=== PATIENT | male | born 1945 | race Hispanic/Latino ===

== ENCOUNTER → 2023-11-28 08:36 | Outpatient (REF) | payer OTHER, SELFPAY ==
[2023-11-28 10:33] LABS: Erythrocyte Sed Rate 10 mm/hour (0-20)
== END ==
LOC: REG 08:36
PROVIDERS: ATTENDING PHYSICIAN Hospitalist; FAMILY PHYSICIAN Family Medicine; REFERRING PHYSICIAN Physician Assistant
DX: M35.3 Polymyalgia rheumatica (principal)
CPT/HCPCS: 36415; 85652; 86140

== ENCOUNTER → 2024-02-10 12:07 | Outpatient (REF) | payer OTHER, SELFPAY | LOC: RAD 12:07 | PROVIDERS: ATTENDING PHYSICIAN Physician Assistant | DX: M06.9 Rheumatoid arthritis, unspecified (principal); M79.641 Pain in right hand; M79.642 Pain in left hand; M25.531 Pain in right wrist; M25.532 Pain in left wrist; M79.601 Pain in right arm; M79.602 Pain in left arm | CPT/HCPCS: 73030; 73090; 73110; 73130 ==

== ENCOUNTER → 2024-03-12 09:35 | Outpatient (REF) | payer OTHER, SELFPAY | LOC: RAD 09:35 | PROVIDERS: ATTENDING PHYSICIAN Surgery Vascular Surgery; FAMILY PHYSICIAN Family Medicine | DX: I72.4 Aneurysm of artery of lower extremity (principal) | CPT/HCPCS: 93922; 93925 ==

== ENCOUNTER → 2024-03-18 10:49 | Outpatient (REF) | payer OTHER, SELFPAY ==
[2024-03-18 12:47] LABS: Blood Urea Nitrogen 20 mg/dl (9-20); Calcium 9.9 mg/dl (8.4-10.2); Carbon Dioxide 29 mmol/L (22-30); Chloride 105 mmol/L (98-107); Glucose 101 mg/dl (70-99); Potassium 4.4 mmol/L (3.5-5.1); Sodium 143 mmol/L (135-145); eGFR > 60.00
== END ==
LOC: REG 10:49
PROVIDERS: ATTENDING PHYSICIAN Surgery Vascular Surgery
DX: I72.4 Aneurysm of artery of lower extremity (principal)
CPT/HCPCS: 36415; 80048

== ENCOUNTER → 2024-03-24 10:42 | Outpatient (REF) | payer OTHER, SELFPAY | LOC: HWRAD 10:42 | PROVIDERS: ATTENDING PHYSICIAN Surgery Vascular Surgery; FAMILY PHYSICIAN Family Medicine | DX: I72.4 Aneurysm of artery of lower extremity (principal) | CPT/HCPCS: 74174; Q9967 ==

== ENCOUNTER 2024-05-04 09:12 | Inpatient (IN) | payer OTHER, SELFPAY ==
[2024-04-29 10:30] VITALS: BMI 24.6
[2024-04-29 11:14] LABS: % Basophils 0.4 % (0-2); % Eosinophils 0.8 % (0-6); % Immature Granulocytes 0.7 % (0-0.5); % Lymphocytes 11.6 % (20.5-51.1); % Monocytes 9.3 % (1.7-9.3); % Neutrophils 77.2 % (42.2-75.2); Absolute Eosinophils 0.1 10^3/uL (0-0.7); Absolute Immature Granulocytes 0.1 10^3/uL (0-0.05); Absolute Lymphocytes 1.3 10^3/uL (1.2-3.4); Absolute Neutrophils 8.5 10^3/uL (1.4-6.5); Hematocrit 39.8 % (39.0-52.0); Hemoglobin 13.4 g/dL (13.0-18.0); Mean Corp Hgb Conc. 33.7 g/dL (33.0-37.0); Mean Corpuscular Hgb 31.8 pg (27.0-31.0); Mean Corpuscular Volume 94.5 fL (80.0-94.0); Mean Platelet Volume 9.3 fL (7.4-10.4); Nucleated Red Blood Cells % 0 % (-); Platelet Count 205 10^3/uL (130-400); Red Blood Cell Count 4.21 10^6/uL (4.70-6.10); Red Cell Dist. Width 14.6 % (11.5-14.5)
[2024-04-29 11:33] LABS: INR 1.02; PT 13.4 Sec (11.4-14.6)
[2024-04-29 11:34] LABS: APTT 32.1 Sec (23.4-35.0)
[2024-04-29 11:56] LABS: Blood Urea Nitrogen 21 mg/dl (9-20); Calcium 9.4 mg/dl (8.4-10.2); Carbon Dioxide 27 mmol/L (22-30); Chloride 103 mmol/L (98-107); Estimated Creatinine Clearance 44 ml/min; Glucose 98 mg/dl (70-99); Potassium 4.2 mmol/L (3.5-5.1); Sodium 139 mmol/L (135-145); eGFR > 60.00
--- NOTE | 2024-04-30 08:35 | PTCARENOTE ---
Patients 04/29 CXR abnormal- Palam @ Dr. Robles office notified.
[2024-05-04] VITALS (8 sets, daily range): BP systolic 105–136; BP diastolic 64–77; BMI 24.5
--- NOTE | 2024-05-04 09:26 | W.SUR.PREOP ---
Pre-Operative Surgical Note
-
I have examined this patient prior to the performance of the scheduled procedure.
The patient's condition is unchanged from the time of the current History and
Physical and the patient is able to undergo the scheduled procedure.
[2024-05-04] MEDS: PERIDEX 0.12% ORAL RINSE 15 ML PO (09:55)
[2024-05-04] MEDS: BACTROBAN NASAL 1 GRAM NASAL (09:55)
[2024-05-04] MEDS: NSS 500 IV (09:56)
[2024-05-04] MEDS: VANCOCIN 200 IV (09:56)
--- NOTE | 2024-05-04 10:36 | PTCARENOTE ---
Family reports increased restlessness, pt medicated with dilaudid as charted for comfort.
--- NOTE | 2024-05-04 11:52 | W.IMMPOSTOP ---
Surgical Immed Post Op Note
-
Primary Surgeon: Inder Jay III, MD
Assisting Surgeon: Colin Lee MD
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
Post-op Diagnosis: As above
Procedure Performed: Left common femoral artery aneurysm repair
Anesthesia Type: General
Specimen / Cultures: NA
Estimated Blood Loss: 100cc
Complications: None
Operative Findings:
A vertical incision was made and a femoral cutdown was performed in the standard fashion. Lymphactics were tied off or suture ligated. Proximal and distal control of the femoral vessel was obtained. Systemic heparinization was administered. Control
of branch vessels stemming from the aneurysmal section was also obtained. The aneurysmal section was resected and branch vessels transected. A 8mm wide dacron interposition graft was measured, shaped, and sewn in an end-end fashion to the two ends
of the non-aneurysmal femoral artery remnants using running 5-0 polypropylene suture. The branch vessels were re-anastamosed to an arteriotomy made in the graft and sewn in an end-side fashion. Doppler ultrasonography confirmed widely patent flow in
the femoral artery as well as all re-anastamosed branch vessels. Hemostasis was confirmed. A sartorius muscle flap was harvested and used to cover the interposition graft via attachment to surrounding fascia using a running 2-0 vicryl suture. Two OLAYINKA
drains were left in place. The overlying soft tissue and skin were closed with a running 3-0 prolene and 4-0 monocryl suture. After skin closure, doppler sonography was used to reconfirm patent blood flow to the distal extremities.
--- NOTE | 2024-05-04 12:46 | PTCARENOTE ---
Pt now weaned to room air, medicated as charted. Assisted Jennifer, hospice nurse to reposition pt and meet with children at bedside.
[2024-05-04 13:51] LABS: ACT-LR - POC 321 Seconds (116-155)
[2024-05-04 14:51] LABS: ACT-LR - POC 208 Seconds (116-155)
[2024-05-04 15:22] LABS: ACT-LR - POC 170 Seconds (116-155)
[2024-05-04 16:30] LABS: Hemoglobin 11.3 g/dL (13.0-18.0); Mean Corp Hgb Conc. 34.2 g/dL (33.0-37.0); Mean Corpuscular Hgb 31.7 pg (27.0-31.0); Mean Corpuscular Volume 92.7 fL (80.0-94.0); Mean Platelet Volume 9.1 fL (7.4-10.4); Platelet Count 196 10^3/uL (130-400); Red Blood Cell Count 3.56 10^6/uL (4.70-6.10); Red Cell Dist. Width 14.2 % (11.5-14.5); White Blood Cell Count 7.8 10^3/uL (4.8-10.8)
--- NOTE | 2024-05-04 16:35 | CON.INTV ---
Consultation
Consultation Request
Date/Time Consultation Requested: 05/04/2024 - 153
Date/Time Consultation Performed: 05/04/2024 - 160
Requesting Provider: RIGO Evans
Performing Provider: Evelio Chin MD
Reason for Consultation: s/p femoral anuerysm repair and muscle flap
Medical History
-
Chief Complaint: Elective femoral artery aneurysm repair
History of Present Illness:
78-year-old former tobacco smoking male with past medical history of hyperlipidemia, hypertension, AAA s/p repair (2018) and history of RA who presents with left common femoral artery aneurysm repair. Patient follows with vascular surgery,
Pierre, with last office visit on 04/07/2024. At that visit his CT angio showing a left common femoral artery aneurysm with significant mural thrombus was reviewed. Surgical repair was discussed and patient has agreed to this. Today, patient
underwent left common femoral artery aneurysm repair with prophylactic sartorius muscle flap coverage. There were no complications to surgery with EBL 100 cc. Patient transferred to the ICU postoperatively and critical care services consulted for
additional management/recommendations.
When I saw the patient he was in bed, in no acute distress, breathing comfortably on 2 L/min nasal cannula saturating 98%. BP 114/74 via NIBP, and 144/79 via right radial A-line. Heart rate 86. He has some pain in his left hip/groin region but
otherwise denies chest pain, shortness of breath, headache, abdominal pain, fevers or chills.
PMHx: Hyperlipidemia, hypertension, dementia, right ear deafness, history of RA, PVD, former smoker
PSHx: AAA repair (2019 � [facility]), left and right groin stents placement (2020), right above-knee popliteal artery to below-knee popliteal artery bypass
Past Medical History
Past Medical History: Other (Above as per HPI)
Past Surgical History: Other (Above as per HPI)
Social History
Tobacco: Former Smoker (Quit in 2017)
Alcohol: None
Drug: None
Personal:
Living: With Family
Family History
Family History: Reviewed & Not Pertinent
Allergies / Home Medications
Allergies
Allergy/AdvReac Type Severity Reaction Status Date / Time
adhesive Allergy Blistering/ Verified 05/04/24 15:39
welts
Penicillins Allergy 1951-childh Verified 05/04/24 15:39
ood
Home Medications
�Medication �Instructions �Recorded �Confirmed �Last Taken �Type
aspirin 81 mg tablet,delayed 81 mg PO QPM Blood clot 11/14/21 05/04/24 05/03/24 18:00 History
release prevention/tx
atorvastatin 40 mg tablet 40 mg PO QPM High cholesterol 11/14/21 05/04/24 05/03/24 18:00 History
cholecalciferol (vitamin D3) 25 1,000 units PO QPM Supplement 11/14/21 05/04/24 05/03/24 18:00 History
mcg (1,000 unit) tablet
clopidogrel 75 mg tablet 75 mg PO QPM Blood clot 11/14/21 05/04/24 05/03/24 18:00 History
prevention/tx
lisinopril 10 mg tablet 10 mg PO QPM Blood pressure 11/14/21 05/04/24 05/03/24 18:00 History
denosumab 60 mg/mL subcutaneous 60 mg SC [id number] 09/24/23 05/04/24 10 Days Ago History
syringe (Prolia) ~09/14/23
cyanocobalamin (vitamin B-12) 1,000 mcg PO HS 04/26/24 05/04/24 05/03/24 18:00 History
1,000 mcg tablet
prednisone 5 mg tablet 5 mg PO HS 04/26/24 05/04/24 05/03/24 18:00 History
Review of Systems
-
History Source: Patient
All other systems: Negative unless noted
Vitals / Labs / Diagnostic Testing
Vital Signs
Temp Pulse Resp BP Pulse Ox
96.7 F L 83 14 136/71 97
05/04/24 17:10 05/04/24 17:00 05/04/24 17:00 05/04/24 17:36 05/04/24 17:10
Lab Data
05/04/24 16:23
05/04/24 16:23
Laboratory Results
05/04/24
16:23
PT 14.6
INR 1.16
APTT 32.7
Diagnostic Testing:
Physical Exam
-
HEENT: Normocephalic and Anicteric
Cardiovascular: S1/S2 and Peripheral Edema (Negative)
Respiratory: Wheeze (Negative), Rales (Negative), Rhonchi (Negative) and Other (Reduced breath sounds bilaterally)
GI: Soft, Non Distended, Non Tender and Normal Bowel Sounds
Neurology: Awake, Alert and Tremors (Negative)
Skin: Warm and Dry
General: Respiratory Distress (Negative), Comfortable and Chills (Negative)
Assessment
-
Assessment: 78-year-old former tobacco smoking male with past medical history of hyperlipidemia, hypertension, AAA s/p repair (2019) and history of RA who presents with left common femoral artery aneurysm repair. Patient follows with vascular
surgery, Dr. Jay, with last office visit on 04/07/2024. At that visit his CT angio showing a left common femoral artery aneurysm with significant mural thrombus was reviewed. Surgical repair was discussed and patient has agreed to this. Today,
patient underwent left common femoral artery aneurysm repair with prophylactic sartorius muscle flap coverage. There were no complications to surgery with EBL 100 cc. Patient transferred to the ICU postoperatively and critical care services
consulted for additional management/recommendations.
Chronic conditions MAITRE D: Hyperlipidemia, hypertension, dementia, right ear deafness, history of RA, PVD, former smoker
Impression:
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
#Anemia
#Former tobacco use
#Hypertension
#History of AAA s/p repair (2019)
#Hyperlipidemia
Plan:
Postoperative surgical intensive care unit monitoring
Pain control
Up OOB as tolerated
Supplemental oxygen to maintain SpO2 >90-94% -wean as tolerated
Incentive spirometry encouraged
prn nebulized bronchodilators - not currently bronchospastic
Aspiration precautions
Neuro and vascular checks per protocol
Maintain MAP>65
Replete electrolytes with K>4, Mg>2
Vascular surgery following-correspondence and operative notes reviewed
Maintain euglycemia with goal BG 140-180
DVT prophylaxis
Early nutrition
Early mobilization
Critical care statement: A total of 38 minutes of critical care time was provided for this patient today. This includes management of unstable vital signs, evaluation of the patient at bedside, reviewing the patient's pertinent medical records
including radiographs, microbiology, laboratory evaluations, and discussion with primary team, consultants, pharmacy, nutrition, physical therapy, case management, charge nurse, critical care nursing, and respiratory therapy.
[2024-05-04 16:41] LABS: INR 1.16; PT 14.6 Sec (11.4-14.6)
[2024-05-04 16:42] LABS: APTT 32.7 Sec (23.4-35.0)
[2024-05-04 16:48] LABS: Blood Urea Nitrogen 17 mg/dl (9-20); Calcium 7.8 mg/dl (8.4-10.2); Carbon Dioxide 21 mmol/L (22-30); Chloride 108 mmol/L (98-107); Estimated Creatinine Clearance 73 ml/min; Glucose 149 mg/dl (70-99); Potassium 4.5 mmol/L (3.5-5.1); Sodium 136 mmol/L (135-145); eGFR > 60.00
[2024-05-04] MEDS: NSS 1000 IV (16:54)
--- NOTE | 2024-05-04 17:21 | OR.RPT ---
Operative Report
Operative Report
Date of Operation: 05/04/2024
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
Procedure:
1.) Left common femoral artery aneurysm repair
2.) Prophylactic sartorius muscle flap coverage
Surgeon: Inder Jay III, MD
Assistants: Colin Lee MD PGY-2; Flo Mills MD PGY-1
Anesthesia: General
Complications: None
Estimated Blood Loss: 100 cc
History and Indications for Procedure: 78-year-old male with large left common femoral artery aneurysm and associated mural thrombus
Procedure in Detail: Lyndon Vang was correctly identified and placed supine on the operating table. After adequate induction of anesthesia his abdomen, pelvis, left groin and left thigh were prepped and draped in the usual sterile fashion. He
received preoperative antibiotics. A timeout procedure was performed with the nursing and anesthesia staff confirming the patient's identity as well as the nature and laterality of the procedure.
A vertical incision was made over the left groin. Electrocautery and sharp dissection were carried down to the inguinal ligament. Dissection continued under the inguinal ligament and the distal left external iliac artery was exposed. Proximal
control was obtained on the distal external iliac artery with a vessel loop. Dissection was carried distally using a combination of electrocautery and sharp dissection. The common femoral artery aneurysm was exposed. The femoral bifurcation was
identified. The proximal superficial femoral artery was exposed and distal control was obtained on the SFA with a vessel loop. The profunda femoral artery was sharply exposed and dissection carried distally to the first branch points. Distal
control was obtained with vessel loops.
The patient was systemically heparinized. The distal vessel loops were secured. A Derra clamp was placed on the distal left external iliac artery. The aneurysm was opened with electrocautery and scissors. The aneurysm was opened to the distal
external iliac artery and a suitable site for the proximal anastomosis was identified. The artery was transected at this level. Mural thrombus was evacuated from the aneurysm sac. The aneurysm wall was sharply debrided back and this tissue, along
with mural thrombus, was sent to pathology. Distal dissection continued to the proximal superficial femoral artery. A suitable site for the distal anastomosis to the superficial femoral artery was identified. The artery was sharply transected at
this location. The proximal aspect of the profunda femoral artery was not aneurysmal and was transected to allow for direct reimplantation onto the graft.
I then brought onto the field and 8 mm Dacron limb. The proximal anastomosis was sewn end-to-end to the distal left external iliac artery using a running 5-0 Prolene suture. Following this the proximal clamp was released. There was excellent
pulsatile flow from the end of the limb. The suture line was closely inspected and was hemostatic. While pressurized the graft was marked for the site of the distal anastomosis and the location for the reimplantation of the profunda femoral
artery. The end of the graft was back flushed with heparinized saline and a proximal clamp reapplied to the graft.
Using an 11 blade I made a slit on the infero-lateral aspect of the graft for the profunda femoral artery reimplantation. This was opened slightly with Raphael scissors. The profunda femoral artery was reimplanted onto the Dacron limb using a
running 5-0 Prolene suture. Following this we then performed the distal anastomosis to the superficial femoral artery. The graft was shortened appropriately and an end-to-end anastomosis was performed to the superficial femoral artery using a
running 5-0 Prolene suture. Prior to the completion of this anastomosis the proximal clamp was temporarily released. The graft was flushed with heparinized saline solution. The anastomosis was completed. The distal vessel loops were released
followed by the proximal clamp. There was a strong pulse in the graft. Palpable pulses were felt in the profunda femoral artery and the superficial femoral artery. All suture lines were closely inspected for hemostasis which was achieved.
Protamine was administered. The wound was irrigated with copious amounts of warm saline solution.
I then focused my attention on the muscle flap portion of the procedure. The sartorius muscle was identified in the wound bed. Electrocautery and sharp dissection were used to expose the sartorius muscle back to its insertion on the anterior
superior iliac spine. The sartorius muscle was then divided at its insertion using electrocautery. Gentle blunt dissection was then used to mobilize the sartorius muscle. Perforating branches were identified but none had to be sacrificed in order
to rotate the muscle for coverage. The sartorius muscle was then gently rotated over to cover the graft repair. The sartorius muscle was then tacked to the surrounding tissue circumferentially using interrupted 3-0 Vicryl sutures in a horizontal
mattress fashion. Hemostasis was achieved in the wound bed. 2 #10 OLAYINKA drains were left in the wound bed. The lateral OLAYINKA drain was left in the sartorius bed. The medial OLAYINKA was left on top of the sartorius muscle. The drains were secured at the
skin exit sites using nylon sutures. The subcutaneous tissue was then closed in layers over the drains. The skin was reapproximated with 4-0 Monocryl. Sterile dressings were applied.
Patient tolerated the procedure well was taken to the recovery room in good condition.
Attestation: I was present and responsible for the entire procedure
Signed:
Inder Jay III, MD
[facility]
[phone] (pxgc)
[2024-05-04] MEDS: LIPITOR 40 MG PO (17:36)
[2024-05-04] MEDS: ZESTRIL 10 MG PO (17:36)
[2024-05-04] MEDS: PLAVIX 75 MG PO (17:36)
[2024-05-04] MEDS: VITAMIN D3 (cholecalciferol) 25 MCG PO (17:36)
[2024-05-04] MEDS: ASPIR LOW (ENTERIC COATED) 81 MG PO (17:36)
[2024-05-04] MEDS: ROXICODONE 5 MG PO (17:37)
[2024-05-04 17:50] LABS: Magnesium 1.9 mg/dl (1.6-2.3)
--- NOTE | 2024-05-04 19:00 | PTCARENOTE ---
Received patient at 1900. Pt. currently in bed eating dinner. Alert and oriented. PRN medication given for pain, see MAR. Heart rhythm sinus. Blood pressure normotensive. Neurovascular checks normal, pulses palpable. Currently on room air. Lungs
sound diminished. Clear liquid diet, good appetite. Jay catheter in place, draining without issue. Skin as documented. Discussed plan of care with patient. Vital signs stable at this time.
--- NOTE | 2024-05-04 19:16 | PTCARENOTE ---
Received pt from [facility] around 1700. Pt c/o 02/12 pain to l groin, medicated as charted. Dressing to l groin c/d/i, jodi drains dressings c/d/i labeled a/b and small amount of sanguinous drainage. Pulses palpable b/l. Admission completed, see
flowsheet. Granddaughter called and made aware that pt was in ICU. Pt reports 'he thought people were filming him when he first woke up, but easily redirected/oriented and says that this is the best he has ever felt after anesthesia'. Report to
next shift.
[2024-05-04] MEDS: TYLENOL 650 MG PO (19:23)
[2024-05-04] MEDS: DELTASONE 5 MG PO (21:36)
[2024-05-04] MEDS: VITAMIN B-12 1000 MCG PO (21:36)
[2024-05-04] MEDS: DILAUDID 0.5 MG IV (22:55)
[2024-05-05] VITALS (9 sets, daily range): BP systolic 92–126; BP diastolic 57–97; BMI 25.0
--- NOTE | 2024-05-05 | PTCARENOTE ---
Pt. assessment unchanged. Neurovascular checks are normal. Palpable pulses. PRN medication given for pain, see MAR. Vital signs stable at this time.
[2024-05-05] MEDS: DILAUDID 0.5 MG IV ×2 (03:27→15:31)
[2024-05-05 03:28] LABS: Hematocrit 30.2 % (39.0-52.0); Hemoglobin 10.6 g/dL (13.0-18.0); Mean Corp Hgb Conc. 35.1 g/dL (33.0-37.0); Mean Corpuscular Hgb 31.8 pg (27.0-31.0); Mean Corpuscular Volume 90.7 fL (80.0-94.0); Mean Platelet Volume 9.3 fL (7.4-10.4); Platelet Count 233 10^3/uL (130-400); Red Blood Cell Count 3.33 10^6/uL (4.70-6.10); Red Cell Dist. Width 14.1 % (11.5-14.5); White Blood Cell Count 11.4 10^3/uL (4.8-10.8)
[2024-05-05] MEDS: NSS 1000 IV (03:28)
--- NOTE | 2024-05-05 03:30 | PTCARENOTE ---
Pt. assessment remains unchanged. AM labs drawn. Neurovascular checks unchanged. Vital signs stable at this time.
[2024-05-05 03:37] LABS: APTT 30.5 Sec (23.4-35.0); INR 1.14; PT 14.5 Sec (11.4-14.6)
[2024-05-05 03:55] LABS: Blood Urea Nitrogen 15 mg/dl (9-20); Calcium 8.2 mg/dl (8.4-10.2); Carbon Dioxide 21 mmol/L (22-30); Chloride 110 mmol/L (98-107); Estimated Creatinine Clearance 63 ml/min; Glucose 130 mg/dl (70-99); Magnesium 2.1 mg/dl (1.6-2.3); Potassium 4.6 mmol/L (3.5-5.1); Sodium 137 mmol/L (135-145); eGFR > 60.00
--- NOTE | 2024-05-05 07:15 | PTCARENOTE ---
Handoff assessment. He is awake and very talkative. Right AC#18g protective catheter with 0.9nss@80ml/hr. Left FA#20g protective catheter flushed and patent. Bounding DP/PT pulses bilaterally. States he has numbness to his L/E on his medial and
lateral calves. This is not a new finding for him per the pt. Lungs CTA. Using the IS between 500ml-1000ml. RA pulse ox 95%. +BSx4. C/O hunger. Temperature sensing fermin catheter to gravity drain for clear yellow urine. Right radial arterial line
transduced, calibrated and monitored. All ports patent and secured. Dressing CDI. Left femoral aquacel dressing CDI. OLAYINKA drains A and B both stripped as ordered, bloody drainage to both drains. Optifoam gentle to lower back intact. Worsening pain of
his LLE with repositioning. Noted to be holding his thigh. Pillow placed under his heels. Safe environment maintained. Will continue supportive care.
[2024-05-05] MEDS: HEPARIN 5000 UNITS SC ×3 (08:27→23:04)
--- NOTE | 2024-05-05 08:48 | W.PN.INTV ---
Addendum entered and electronically signed by Evelio Chin MD 05/05/24 16:09:
Of note, patient has been smoking 0.5 PPD X 60 years.
Original Note:
Today's Communication / Plan
Recommendations
Up OOB as tolerated
Bedrest till tomorrow as per vascular surgery
Jay catheter while on bedrest
Pain control
Encourage incentive spirometer use
Fireworks Maker/Pulmonary service will continue to follow along while patient remains in the ICU
Assessment
-
Assessment: 78-year-old former tobacco smoking male with past medical history of hyperlipidemia, hypertension, AAA s/p repair (2019) and history of RA who presents with left common femoral artery aneurysm repair. Patient follows with vascular
surgery, Dr. Jay, with last office visit on 04/07/2024. At that visit his CT angio showing a left common femoral artery aneurysm with significant mural thrombus was reviewed. Surgical repair was discussed and patient has agreed to this. Today,
patient underwent left common femoral artery aneurysm repair with prophylactic sartorius muscle flap coverage. There were no complications to surgery with EBL 100 cc. Patient transferred to the ICU postoperatively and critical care services
consulted for additional management/recommendations.
Chronic conditions LINE CREWMAN: Hyperlipidemia, hypertension, dementia, right ear deafness, history of RA, PVD, former smoker
Impression:
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
#Anemia
#Former tobacco use (quit 2018)
#Hypertension
#History of AAA s/p repair (2019)
#Hyperlipidemia
#Hx of dementia swith Hx of
Plan:
Postoperative surgical intensive care unit monitoring
Bedrest as per vascular surgery until tomorrow
Pain control
Up OOB as tolerated
Supplemental oxygen to maintain SpO2 >90-94% -wean as tolerated
Incentive spirometry encouraged
prn nebulized bronchodilators - not currently bronchospastic
Aspiration precautions
Neuro and vascular checks per protocol
Maintain MAP>65
Replete electrolytes with K>4, Mg>2
Vascular surgery following-correspondence and operative notes reviewed
Maintain euglycemia with goal BG 140-180
DVT prophylaxis
Early nutrition
Early mobilization
Given his significant tobacco smoking history and age of [age] years old, he qualifies for lung cancer screening via annual LDCT chest. This can be discussed with him in the office setting which I will arrange.
Critical care statement: A total of 43 minutes of critical care time was provided for this patient today. This includes management of unstable vital signs, evaluation of the patient at bedside, reviewing the patient's pertinent medical records
including radiographs, microbiology, laboratory evaluations, and discussion with primary team, consultants, pharmacy, nutrition, physical therapy, case management, charge nurse, critical care nursing, and respiratory therapy.
Subjective Dataa
Subjective Data
Date of Service:
Date of Service: May 05, 2024
Chief Complaint: Fireworks Maker Follow Up
Subjective:
Pt seen and evaluated this AM. No issues reported overnight. HR 97, BP 120/78. SpO2 95% on RA. Afebrile overnight. He has mild pain at his left groin site. He denies chest pain, shortness breath, headache, fevers or chills.
Review of Systems
General: Other (Negative unless mentioned above)
Objective Data
Data Reviewed
Vital Signs / I&O / Oxygen:
Vital Signs
Temp Pulse Resp BP Pulse Ox
97.2 F 82 18 126/97 95
05/05/24 07:54 05/05/24 08:37 05/05/24 08:37 05/05/24 08:37 05/05/24 09:03
Intake and Output
05/04/24 05/05/24 05/06/24
06:59 06:59 06:59
Intake Total 1540 / 1620 160 / 160
Output Total 2590 / 2780 380 / 380
Balance -1050 / -1160 -220 / -220
SaO2 95
Nasal Cannula flow liters per 2
minute
Physical Exam
General: Respiratory Distress (Negative) and Comfortable
HEENT: Normocephalic and Anicteric
Cardiovascular: S1-S2 and Peripheral Edema (Negative)
Respiratory: Clear, Wheeze (Negative), Crackles (Negative), Rhonchi (Negative), Non-Labored Respirations and Other (Reduced breath sounds bilaterally)
GI: Soft, Non Distended, Non Tender and Normal Bowel Sounds
Neurology: Awake, Alert and Tremors (Negative)
Skin: Warm, Dry, Jaundice (Negative) and Other (Bandage on left groin)
Labs/Micro/Reports
Lab Data
05/05/24 03:15
05/05/24 03:15
Laboratory Results
05/04/24 05/05/24
16:23 03:15
PT 14.6 14.5
INR 1.16 1.14
APTT 32.7 30.5
--- NOTE | 2024-05-05 08:49 | W.PN.VS ---
Today's Communication / Plan
-
Seen and assessed with Dr. Fermin
Assessment/Plan
-
POD 1 1.) Left common femoral artery aneurysm repair
2.) Prophylactic sartorius muscle flap coverage
Plan:
-Bedrest until tomorrow evening
-Continue OLAYINKA drains
-Regular diet
-DC kennedy
-Cont fermin while on bedrest
Subjective Data
-
Date of Service: May 05, 2024
Patient seen at bedside this a.m. with Dr. Fermin. No events overnight. No complaints at this time
Objective Data
-
Vital Signs
Temp Pulse Resp BP Pulse Ox
97.2 F 63 12 107/61 96
05/05/24 07:54 05/05/24 06:30 05/05/24 06:30 05/05/24 05:59 05/05/24 03:30
Intake and Output
05/04/24 05/05/24 05/06/24
06:59 06:59 06:59
Intake Total 1540 / 1620 160 / 160
Output Total 2590 / 2780 380 / 380
Balance -1050 / -1160 -220 / -220
Intake:
Oral fluids 400 / 400
IV fluids (Total) 1140 / 1220 160 / 160
Nss 1,000 ml @ 80 mls/hr IV . 1040 / 1120 160 / 160
[id number] Rx#:[id number]
normosol 100 / 100
Output:
Drain Output (Total) 105 / 105
Left Leg A 45 / 45
Left Upper Leg B 60 / 60
UrinePierre 2485 / 2675 380 / 380
Lab Results
05/05/24 03:15
05/05/24 03:15
Calcium 8.2 mg/dl (8.4-10.2) L 05/05/24 03:15
Phosphorus 3.0 mg/dl (2.5-4.5) 05/05/24 03:15
Magnesium 2.1 mg/dl (1.6-2.3) 05/05/24 03:15
Physical Exam
-
AAOx3
No tachypnea on room air
No tachycardia
Abdomen soft
Surgical site clean dry and intact, soft, no drainage noted
Foot warm and pink
+ Doppler signals
[2024-05-05] MEDS: TYLENOL 650 MG PO ×2 (09:30→23:03)
[2024-05-05] MEDS: ROXICODONE 5 MG PO (10:50)
--- NOTE | 2024-05-05 11:10 | PTCARENOTE ---
TT's Valentine SIERRA regarding Lasix order.
[2024-05-05] MEDS: LASIX 20 MG IV (13:11)
--- NOTE | 2024-05-05 14:23 | CM ---
+CM following re: discharge planning.
Reviewed pt's chart, met with pt and spoke to pt's granddaughter Lynda.
Pt is a 78 year old male, admitted with primary dx of POD #1 Left common femoral artery aneurysm repair.
Pt reports he lives with spouse and a son in a condo, 1st floor, no steps to enter, has 2 children and supportive granddaughter Lynda. Pt reports he uses a cane occasionally, still drives.
Per granddaughter, pt lives with souse who has Alzheimer disease,and son with intellectual disability and neither spouse nor son can help the pt at home. Per granddaughter, she helps as needed. per granddaughter pt can return back home but there
will be nobody to help his at home if he needs help.
PT and OT will evaluate the pt to determine a level of care at discharge.
PCP: Mehul Valentin
Pharmacy: [facility]
D/c plan: most likely home with VN services. PT and OT to confirm.
CM will follow with discharge plan updates as hospitalization progresses
--- NOTE | 2024-05-05 14:56 | PTCARENOTE ---
No changes in assessment. He remains very talkative, repeating how he has not had any sleep. Fair appetite. Lungs remain CTA, occasional moist non-productive cough. Jay with clear, yellow urine. Safe environment maintained.
[2024-05-05] MEDS: ZESTRIL 10 MG PO (17:28)
[2024-05-05] MEDS: LIPITOR 40 MG PO (17:29)
[2024-05-05] MEDS: VITAMIN D3 (cholecalciferol) 25 MCG PO (17:29)
[2024-05-05] MEDS: ASPIR LOW (ENTERIC COATED) 81 MG PO (17:29)
[2024-05-05] MEDS: PLAVIX 75 MG PO (17:29)
--- NOTE | 2024-05-05 20:00 | PTCARENOTE ---
Assumed care of pt, reports pain 4/10 in L LE but denies any pain meds, AAAx4, sinus in the 80's, + radials and pedals, RM air SAT 95%, Lungs diminished throughout, TSF output 125cc, L aquacell dressings over surgical site, [address], RAC
18G, LFA 20G, pt instructed on bedrest, call florentino within reach.
[2024-05-05] MEDS: DELTASONE 5 MG PO (23:04)
[2024-05-05] MEDS: VITAMIN B-12 1000 MCG PO (23:04)
[2024-05-06] VITALS (14 sets, daily range): BP systolic 91–138; BP diastolic 60–89; PULSE 106; BMI 25.1
--- NOTE | 2024-05-06 02:11 | PTCARENOTE ---
Systems reviewed, pt reports pain 4/10 but declines pain meds except Tylenol, pt states 'if I don't think about the pain it will not be there', pt rang multiple times throughout the night asking for bed rodriguez, no BM but declines Dulcolax, +pedal
pulses, legs remain warm and pink, otherwise see flowcharts.
--- NOTE | 2024-05-06 03:08 | PTCARENOTE ---
Assumed care of patient at 0230. Patient is AOx4, follows commands appropriately, can move all extremities. Patient reports some numbness in the medial aspect of BLE the inner thighs, and is reported to be forgetful at times. Patient is deaf in the
left ear. Lung sounds are diminished at the bases, patient saO2 is 97% on RA. Heart sounds have a regular rate and rhythm, patient is SR to ST on the monitor, patient has normal palpable pulses throughout, no edema is noted. Patient has active BS,
+flatus, last BM reported on 05/03. Patient has L groin incision with aquacell dressing that is CDI some ecchymosis around the site and two OLAYINKA drains in the L groin draining sanguineous. Patient has R AC 18G and L FA 20G PIV. VSS. No c/o pain.
[2024-05-06 06:54] LABS: Blood Urea Nitrogen 18 mg/dl (9-20); Carbon Dioxide 27 mmol/L (22-30); Chloride 107 mmol/L (98-107); Estimated Creatinine Clearance 55 ml/min; Glucose 110 mg/dl (70-99); Potassium 4.6 mmol/L (3.5-5.1); Sodium 139 mmol/L (135-145); eGFR > 60.00
--- NOTE | 2024-05-06 07:40 | W.PN.VS ---
Addendum entered and electronically signed by Charles Caraballo MD 05/06/24 09:41:
Seen and examined with CARLOS Mari. Agree with findings as noted below. Patient without significant complaints. Left groin dressing clean dry and intact. Groin is flat. No hematoma. Drains with serosanguineous 20/30 cc. Thigh is soft. Foot is
warm with palpable pedal pulses. Plan/as discussed and noted below.
Original Note:
Today's Communication / Plan
-
Seen and assessed with Dr Caraballo
Assessment/Plan
-
POD 2 1.) Left common femoral artery aneurysm repair
2.) Prophylactic sartorius muscle flap coverage
Plan:
-Bedrest until this afternoon
-Continue OLAYINKA drains
-Regular diet
-DC fermin today
-PT this afternoon
Subjective Data
-
Date of Service: May 06, 2024
Pt seen at bedside this am with Dr Caraballo. Pt offers no complaints at this time. No events overnight.
Objective Data
-
Vital Signs
Temp Pulse Resp BP Pulse Ox
98.5 F 101 26 132/76 94
05/06/24 03:43 05/06/24 03:30 05/06/24 03:30 05/06/24 02:00 05/06/24 03:22
Intake and Output
05/05/24 05/06/24 05/07/24
06:59 06:59 06:59
Intake Total 1540 / 1620 1540 / 1540
Output Total 2590 / 2780 2415 / 2415
Balance -1050 / -1160 -875 / -875
Intake:
Oral fluids 400 / 400 1380 / 1380
IV fluids (Total) 1140 / 1220 160 / 160
Nss 1,000 ml @ 80 mls/hr IV . 1040 / 1120 160 / 160
[id number] [facility] Rx#:[id number]
normosol 100 / 100
Output:
Drain Output (Total) 105 / 105 115 / 115
Left Leg A 45 / 45 50 / 50
Left Upper Leg B 60 / 60 65 / 65
Urine, Fermin 9043 / 4496 2300 / 2300
Lab Results
05/06/24 06:12
Calcium 9.0 mg/dl (8.4-10.2) 05/06/24 06:12
Phosphorus 3.0 mg/dl (2.5-4.5) 05/05/24 03:15
Magnesium 2.0 mg/dl (1.6-2.3) 05/06/24 06:12
Magnesium Cancelled 05/06/24 06:12
Physical Exam
-
AAOx3
No tachypnea on room air
No tachycardia
Abdomen soft
Surgical site clean dry and intact, soft, no drainage noted
Foot warm and pink
+ Doppler signals
[2024-05-06] MEDS: HEPARIN 5000 UNITS SC ×2 (07:58→16:54)
--- NOTE | 2024-05-06 08:02 | PTCARENOTE ---
Assumed care of patient from karate instructor RN. AAO x 3, follows commands. SR on monitor. RA 97% Occasional harsh non productive cough noted. Abdomen soft and non tender, bowel sounds audible. Jay draining clear yellow urine. LT groin Aquacel
c,d,i. Tenderness noted under dressing. OLAYINKA drain x 2, emptied and reconstituted. Bilateral DP pulses palpable. Skin warm and dry. Plan for day discussed.
[2024-05-06 08:40] LABS: Hematocrit 33.6 % (39.0-52.0); Hemoglobin 11.3 g/dL (13.0-18.0); Mean Corp Hgb Conc. 33.6 g/dL (33.0-37.0); Mean Corpuscular Hgb 31.2 pg (27.0-31.0); Mean Corpuscular Volume 92.8 fL (80.0-94.0); Mean Platelet Volume 9.1 fL (7.4-10.4); Platelet Count 285 10^3/uL (130-400); Red Blood Cell Count 3.62 10^6/uL (4.70-6.10); Red Cell Dist. Width 14.4 % (11.5-14.5); White Blood Cell Count 12.1 10^3/uL (4.8-10.8)
--- NOTE | 2024-05-06 08:48 | W.PN.INTV ---
Today's Communication / Plan
Recommendations
Up OOB as tolerated
Pain control
Encourage incentive spirometer use
Outpatient follow-up will be arranged given his significant tobacco smoking history and candidacy for annual LDCT chest for lung cancer screening
Patient is hemodynamically stable, on room air breathing comfortably. Downgrade to 2S which was confirmed with vascular surgery. Outreach Director/Pulmonary service will now sign off. Please reconsult if there are any additional questions/concerns, or
if patient's respiratory status deteriorates.
Assessment
-
Assessment: 78-year-old former tobacco smoking male with past medical history of hyperlipidemia, hypertension, AAA s/p repair (2019) and history of RA who presents with left common femoral artery aneurysm repair. Patient follows with vascular
surgery, Dr. Jay, with last office visit on 04/07/2024. At that visit his CT angio showing a left common femoral artery aneurysm with significant mural thrombus was reviewed. Surgical repair was discussed and patient has agreed to this. Today,
patient underwent left common femoral artery aneurysm repair with prophylactic sartorius muscle flap coverage. There were no complications to surgery with EBL 100 cc. Patient transferred to the ICU postoperatively and critical care services
consulted for additional management/recommendations.
Chronic conditions COMPANION CAREGIVER: Hyperlipidemia, hypertension, dementia, right ear deafness, history of RA, PVD, former smoker
Impression:
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
#Anemia
#Former tobacco use (quit 2018) with 79-jbbi-abdc Hx (0.5PPD x 60 years)
#Hypertension
#History of AAA s/p repair (2019)
#Hyperlipidemia
#Hx of dementia swith Hx of
Plan:
Postoperative surgical intensive care unit monitoring
Pain control
Up OOB as tolerated
Supplemental oxygen to maintain SpO2 >90-94% -wean as tolerated
Incentive spirometry encouraged
prn nebulized bronchodilators - not currently bronchospastic
Aspiration precautions
Neuro and vascular checks per protocol
Maintain MAP>65
Replete electrolytes with K>4, Mg>2
Vascular surgery following-correspondence and operative notes reviewed
Maintain euglycemia with goal BG 140-180
DVT prophylaxis
Early nutrition
Early mobilization
Given his significant tobacco smoking history and age of [age] years old, he qualifies for lung cancer screening via annual LDCT chest. This can be discussed with him in the office setting which I will arrange.
Patient is hemodynamically stable, on room air breathing comfortably. Downgrade to [address] [place] [address] which was confirmed with vascular surgery. Outreach Director/Pulmonary service will now sign off. Thank you for allowing us to be involved in the care of this
patient. Please reconsult if there are any additional questions/concerns, or if patient's respiratory status deteriorates.
Total time spent today was 55 minutes for this encounter. Time includes reviewing laboratory test/imaging results, reviewing pertinent medical records, obtaining and reviewing medical history, performing an appropriate exam, ordering medications,
tests and procedures. Time also includes documentation of this encounter, coordinating patient care and communicating with other healthcare professionals. Total time does not include separately billed tests performed on this date of service.
Subjective Dataa
Subjective Data
Date of Service:
Date of Service: May 06, 2024
Chief Complaint: Outreach Director Follow Up
Subjective:
Patient seen and evaluated this morning. No issues overnight. On room air with SpO2 97%, BP 108/65. HR 99. OLAYINKA drains minimally draining, 10 cc since this AM. Patient has minimal pain in the left groin, he does not asking for pain medications.
I spoke to at bedside and answered all of her questions. I also spoke to the patient's grand-daughter, Lynda, and answered all of her questions over the phone.
Review of Systems
General: Other (Negative unless mentioned above)
Objective Data
Data Reviewed
Vital Signs / I&O / Oxygen:
Vital Signs
Temp Pulse Resp BP Pulse Ox
98.5 F 99 19 114/89 97
05/06/24 07:42 05/06/24 09:30 05/06/24 09:30 05/06/24 08:00 05/06/24 08:05
Intake and Output
05/05/24 05/06/24 05/07/24
06:59 06:59 06:59
Intake Total 1540 / 1620 1540 / 1540 480 / 480
Output Total 2590 / 2780 2415 / 2540 400 / 400
Balance -1050 / -1160 -875 / -1000 80 / 80
SaO2 97
Nasal Cannula flow liters per 2
minute
Physical Exam
General: Respiratory Distress (Negative) and Comfortable
HEENT: Normocephalic and Anicteric
Cardiovascular: S1-S2 and Peripheral Edema (Negative)
Respiratory: Clear, Wheeze (Negative), Crackles (Negative), Rhonchi (Negative), Non-Labored Respirations and Other (Reduced breath sounds bilaterally)
GI: Soft, Non Distended, Non Tender and Normal Bowel Sounds
Neurology: Awake, Alert and Tremors (Negative)
Skin: Warm, Dry, Jaundice (Negative) and Other (Bandage on left groin)
Labs/Micro/Reports
Lab Data
05/06/24 06:12
05/06/24 06:12
[2024-05-06] MEDS: TYLENOL 650 MG PO (12:01)
--- NOTE | 2024-05-06 12:46 | PN.CDI ---
CDI
- -
CDI:
Physician Documentation Request
Admit Date: 05/04/24 09:12
Dear Doctor/SEMI DRIVER
Please review the following and provide your response in the progress notes.
Clinical Indicators:
The diagnosis of Atelectasis was included in the signed CXR 05/04.
Additional clinical indicators in the chart include:
Pt admitted with Left common femoral artery aneurysm repair surgery on 05/04
CXR 05/04, ' Predominantly linear parenchymal opacity within the lower lungs bilaterally, which is most likely atelectasis..'
Currently bedrest / Incentive Spirometer ordered
Please indicate in your progress notes if you are in agreement that the above diagnosis is valid for this patient:
____ - Atelectasis is a valid diagnosis (Please include it in your progress notes)
____ - Atelectasis is not a valid diagnosis for this patient
____ - Other
Use of terms such as suspected, likely, concern for, or probable are acceptable for a diagnosis that is being evaluated, monitored or treated as if it exists and can be coded in the inpatient setting, when documented at the time of discharge.
Thank you,
Elyse Wahl RN
CDI Specialist
[place] [facility]
Please use your independent medical judgment in providing your response.
--- NOTE | 2024-05-06 12:51 | PN.CDI ---
CDI
- -
CDI:
Physician Documentation Request
Admit Date: 05/04/24 09:12
Dear Doctor/AREA OPERATIONS MANAGER,
Please review the following and provide your response in the progress notes.
Clinical Indicators:
Pt admitted with Left common femoral artery aneurysm repair surgery on 05/04
Template Storage Clerk progress note 05/05, ' Anemia'
Post op note ESBL 100 ml
Trended HGB/Hematocrit below
04/29/24 05/05/24
10:42 03:15
Hgb 13.4 10.6 L
Hct 39.8 30.2 L
Based on the above, could you clarify, in your progress note, which of the following is the most likely type of anemia you are evaluating, monitoring and/or treating?
Acute blood loss anemia
Anemia only
Other ( please specify)
Use of terms such as suspected, likely, concern for, or probable (associated with a specific diagnosis that is being evaluated, monitored, or treated as if it exists) are acceptable and can be coded in the inpatient setting, when documented at the
time of discharge.
Thank you,
Elyse Wahl RN
CDI Specialist
[place] [facility]
Please use your independent medical judgment in providing your response.
--- NOTE | 2024-05-06 12:57 | PTCARENOTE ---
Jay cath removed per MD order at 1200. Assist x 2 oob to bsc, attempted to have bm. Passing large amounts of flatus. Pain with standing. but tolerable. Tylenol administered. Sitting in recliner after.
--- NOTE | 2024-05-06 14:13 | W.PN.UPDATE ---
Update Note
Progress Note Update
CDI:
Physician Documentation Request
Admit Date: 05/04/24 09:12
Please review the following and provide your response in the progress notes.
Clinical Indicators:
Pt admitted with Left common femoral artery aneurysm repair surgery on 05/04
Sonoscope Operator progress note 05/05, ' Anemia'
Post op note ESBL 100 ml
Trended HGB/Hematocrit below
04/29/24 05/05/24
10:42 03:15
Hgb 13.4 10.6 L
Hct 39.8 30.2 L
Based on the above, could you clarify, in your progress note, which of the following is the most likely type of anemia you are evaluating, monitoring and/or treating?
Likely Acute blood loss anemia d/t intraoperative blood loss, continuing to monitor with lab draws, no treatment required at thisi time
--- NOTE | 2024-05-06 14:15 | W.PN.UPDATE ---
Update Note
Progress Note Update
CDI:
Physician Documentation Request
Admit Date: 05/04/24 09:12
Please review the following and provide your response in the progress notes.
Clinical Indicators:
The diagnosis of Atelectasis was included in the signed CXR 05/04.
Additional clinical indicators in the chart include:
Pt admitted with Left common femoral artery aneurysm repair surgery on 05/04
CXR 05/04, ' Predominantly linear parenchymal opacity within the lower lungs bilaterally, which is most likely atelectasis..'
Currently bedrest / Incentive Spirometer ordered
Please indicate in your progress notes if you are in agreement that the above diagnosis is valid for this patient:
No clinical indication to support the finding
--- NOTE | 2024-05-06 15:28 | PTCARENOTE ---
Report called to RN on . Pt and belongings sent on stretcher . Pts Granddaughter called and updated.
--- NOTE | 2024-05-06 15:49 | PTCARENOTE ---
Patient received from ICU in stretcher; Patient moved self over from stretcher to bed, declined to ambulate; Patient awake and alert to self, place, and time; Patient denies nausea at this time; States he has pain in the left groin with movement; OLAYINKA
drain x2 to left groin draining sanguinous fluid; Left groin aquacell clean, dry, and intact; Bilateral pedal pulses +2 to palpation; No edema to lower extremities; Patient's left groin soft to palpation, no ecchymosis present; Call florentino within
reach; Bed in lowest position, wheels locked; Assessment and plan of care ongoing
[2024-05-06] MEDS: ASPIR LOW (ENTERIC COATED) 81 MG PO (17:40)
[2024-05-06] MEDS: LIPITOR 40 MG PO (17:40)
[2024-05-06] MEDS: VITAMIN D3 (cholecalciferol) 25 MCG PO (17:40)
[2024-05-06] MEDS: PLAVIX 75 MG PO (17:41)
[2024-05-06] MEDS: ZESTRIL 10 MG PO (17:41)
[2024-05-06] MEDS: VITAMIN B-12 1000 MCG PO (21:35)
[2024-05-06] MEDS: DELTASONE 5 MG PO (21:35)
[2024-05-06] MEDS: ROXICODONE 5 MG PO (22:36)
[2024-05-07] MEDS: HEPARIN 5000 UNITS SC ×3 (00:14→17:10)
[2024-05-07 03:33] VITALS: BP 106/72
[2024-05-07 07:05] VITALS: BP 96/69
[2024-05-07 07:43] LABS: Hematocrit 35.1 % (39.0-52.0); Mean Corp Hgb Conc. 34.2 g/dL (33.0-37.0); Mean Corpuscular Hgb 31.4 pg (27.0-31.0); Mean Corpuscular Volume 91.9 fL (80.0-94.0); Mean Platelet Volume 9.2 fL (7.4-10.4); Platelet Count 308 10^3/uL (130-400); Red Blood Cell Count 3.82 10^6/uL (4.70-6.10); Red Cell Dist. Width 14.4 % (11.5-14.5); White Blood Cell Count 10.6 10^3/uL (4.8-10.8)
[2024-05-07 07:54] LABS: Blood Urea Nitrogen 18 mg/dl (9-20); Calcium 9.6 mg/dl (8.4-10.2); Carbon Dioxide 27 mmol/L (22-30); Chloride 105 mmol/L (98-107); Estimated Creatinine Clearance 55 ml/min; Glucose 110 mg/dl (70-99); Potassium 4.4 mmol/L (3.5-5.1); Sodium 139 mmol/L (135-145); eGFR > 60.00
--- NOTE | 2024-05-07 08:10 | W.PN.VS ---
Addendum entered and electronically signed by Inder Jay III, MD 05/07/24 14:20:
This patient was seen and examined with RIGO Coelho. I agree with the history and physical exam as well as the assessment and plan.
Left groin incision clean and dry
Groin flat
JPs serosang
Continue PT
Explore SNF placement
Keep OLAYINKA drains
Signed:
Inder Jay III, MD
[facility] Vascular Surgery
[phone] (cell)
Original Note:
Today's Communication / Plan
-
Patient seen and examined at bedside with Dr. Inder Jay III, below plan reviewed with attending.
Assessment/Plan
-
POD 3
1.) Left common femoral artery aneurysm repair
2.) Prophylactic sartorius muscle flap coverage
Plan:
-Normal saline bolus for suspected dehydration inducing very mild tachycardia
-Continue OLAYINKA drains
-Regular diet
-Continue PT
-Case management following for disposition recommendations
Subjective Data
-
Date of Service: May 07, 2024
Patient seen and examined at bedside, offers no complaints. Denies nausea, vomiting, fever, chills, chest pain, shortness of breath, and abdominal pain. Reports well-managed postoperative pain. Patient does note he has been forgetting to intake
fluids, granddaughter at bedside who endorses patient frequently does not remember to drink adequate water or other fluids at home prior to surgery. Granddaughter further endorses she is concerned for discharge following hospital particularly
regarding left lower extremity OLAYINKA drains, which medically will be required to stay given muscle flap upon discharge. She endorses that patient has a history of forgetfulness at night. 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 Granddaughter states that she is the primary aide for both her grandfather, grandmother, and uncle; however, due to
other family commitments she is leaving for [place] in a day. She notes she has arranged for someone who is nonmedical to help care for her grandmother and uncle but that individual cannot stay overnight and will not be able to help with medical
necessities for her grandfather.
Objective Data
-
Vital Signs
Temp Pulse Resp BP Pulse Ox
98.1 F 101 15 96/69 95
05/07/24 07:05 05/07/24 07:05 05/07/24 07:05 05/07/24 07:05 05/07/24 07:05
Intake and Output
05/06/24 05/07/24 05/08/24
06:59 06:59 06:59
Intake Total 1540 / 1540 2019
Output Total 2415 / 2540 1185 / 1185
Balance -875 / -1000 835 / 835
Intake:
Oral fluids 1380 / 1380 2019
IV fluids (Total) 160 / 160
Nss 1,000 ml @ 80 mls/hr IV . 160 / 160
[id number] [facility] Rx#:[id number]
Output:
Drain Output (Total) 115 / 115 90 / 90
Left Leg A 50 / 50 30 / 30
Left Upper Leg B 65 / 65 60 / 60
Urine, Jay 2300 / 2425 495 / 495
Urine, Voided 600 / 600
Other:
Number of approximated MODERATE 1
amounts of urine
Lab Results
05/07/24 07:19
05/07/24 07:19
Calcium 9.6 mg/dl (8.4-10.2) 05/07/24 07:19
Phosphorus 3.0 mg/dl (2.5-4.5) 05/05/24 03:15
Magnesium 2.0 mg/dl (1.6-2.3) 05/06/24 06:12
Magnesium Cancelled 05/06/24 06:12
Physical Exam
-
AAOx3
No tachypnea on room air
HR 90- low 100s
Abdomen soft, nontender, nondistended
Surgical site clean dry and intact, soft, no drainage noted, dressings changed, CDI
Foot warm and pink
+ Doppler signals
[2024-05-07] MEDS: NSS 500 IV (08:25)
[2024-05-07 09:52] VITALS: BP 113/69; BP 120/69; PULSE 100; O2SAT 98
--- NOTE | 2024-05-07 10:04 | VNURNOTE ---
Chart reviewed. Spoke with primary contact, granddaughter Lynda. Explained [facility] services, frequency of visits, homebound status, purpose. Granddaughter expressed concerns with patient going home with OLAYINKA drains given his dementia. Per
granddaughter, pt's spouse lives with him but also has dementia. He is her caregiver. Son comes in periodically but has a TBI and unable to provide care. Per granddaughter there is no one at home during the day to help and daughter concerned about
patient pulling out OLAYINKA drains especially at night. Granddaughter is interested in SNF. Relayed info to LUCRETIA Darby.
--- NOTE | 2024-05-07 10:32 | CM ---
PT re-evaluated patient this morning; SNF recommended
CM spoke with patient's granddaughter (Primary Contact); reviewed list of SNFs with her and obtained preferences
Referrals sent to [facility], [facility], and [facility] via [facility]; AUTH NEEDED.
Plan: discharge to SNF when medically stable; pending bed availability and AUTHORIZATION approval
[2024-05-07 11:02] VITALS: BP 108/65
[2024-05-07 15:07] LABS: Troponin I < 0.012 ng/ml
[2024-05-07] MEDS: PLAVIX 75 MG PO (17:10)
[2024-05-07] MEDS: LIPITOR 40 MG PO (17:10)
[2024-05-07] MEDS: ASPIR LOW (ENTERIC COATED) 81 MG PO (17:10)
[2024-05-07] MEDS: VITAMIN D3 (cholecalciferol) 25 MCG PO (17:10)
[2024-05-07] MEDS: ZESTRIL 10 MG PO (17:10)
[2024-05-07 19:24] VITALS: BP 123/82
[2024-05-07] MEDS: DELTASONE 5 MG PO (21:28)
[2024-05-07] MEDS: VITAMIN B-12 1000 MCG PO (21:29)
[2024-05-07 23:18] VITALS: BP 105/70
[2024-05-08] MEDS: HEPARIN 5000 UNITS SC ×3 (00:22→16:37)
[2024-05-08 03:27] VITALS: BP 108/73
[2024-05-08 07:20] VITALS: BP 101/67
--- NOTE | 2024-05-08 07:25 | W.PN.VS ---
Today's Communication / Plan
-
as above
Assessment/Plan
-
POD 4
1.) Left common femoral artery aneurysm repair
2.) Prophylactic sartorius muscle flap coverage
Plan:
-Continue OLAYINKA drains
-Regular diet
-Continue PT
-Case management following for disposition recommendations
Subjective Data
-
Date of Service: May 08, 2024
No acute events. Patient has no complaints this am
Objective Data
-
Vital Signs
Temp Pulse Resp BP Pulse Ox
98.7 F 89 19 108/73 97
05/08/24 03:27 05/08/24 03:27 05/08/24 03:27 05/08/24 03:27 05/08/24 03:27
Intake and Output
05/07/24 05/08/24 05/09/24
06:59 06:59 06:59
Intake Total 2019 2440 / 2440
Output Total 1185 / 1185 705 / 705
Balance 835 / 835 1735 / 1735
Intake:
Oral fluids 2019 194 / 194
IV fluids (Total) 500 / 500
Output:
Drain Output (Total) 90 / 90 55 / 55
Left Leg A 30 / 30 20 / 20
Left Upper Leg B 60 / 60 35 / 35
Urine, Jay 495 / 495
Urine, Voided 600 / 600 650 / 650
Other:
Number of approximated SMALL 2
amounts of urine
Number of approximated MODERATE 1 2
amounts of urine
Lab Results
05/07/24 07:19
05/07/24 07:19
Calcium 9.6 mg/dl (8.4-10.2) 05/07/24 07:19
Phosphorus 3.0 mg/dl (2.5-4.5) 05/05/24 03:15
Magnesium 2.0 mg/dl (1.6-2.3) 05/06/24 06:12
Magnesium Cancelled 05/06/24 06:12
Physical Exam
-
NAD
Incision c/d/i
JPs serosang
[2024-05-08 15:20] VITALS: BP 126/69
[2024-05-08] MEDS: LIPITOR 40 MG PO (17:53)
[2024-05-08] MEDS: VITAMIN D3 (cholecalciferol) 25 MCG PO (17:53)
[2024-05-08] MEDS: PLAVIX 75 MG PO (17:53)
[2024-05-08] MEDS: ASPIR LOW (ENTERIC COATED) 81 MG PO (17:53)
[2024-05-08] MEDS: ZESTRIL 10 MG PO (17:53)
[2024-05-08] MEDS: VITAMIN B-12 1000 MCG PO (21:12)
[2024-05-08] MEDS: DELTASONE 5 MG PO (21:12)
[2024-05-08] MEDS: TYLENOL 650 MG PO (21:19)
[2024-05-08 23:32] VITALS: BP 104/73
[2024-05-09] MEDS: HEPARIN 5000 UNITS SC ×3 (00:03→16:10)
--- NOTE | 2024-05-09 06:57 | W.PN.VS ---
Today's Communication / Plan
-
as above
Assessment/Plan
-
POD 5
1.) Left common femoral artery aneurysm repair
2.) Prophylactic sartorius muscle flap coverage
Plan:
-Continue OLAYINKA drains
-Regular diet
-Continue PT
-Case management following for disposition recommendations
Subjective Data
-
Date of Service: May 09, 2024
No acute events. Patient with no complaints today
Objective Data
-
Vital Signs
Temp Pulse Resp BP Pulse Ox
98.2 F 94 18 104/73 98
05/08/24 23:32 05/08/24 23:32 05/08/24 23:32 05/08/24 23:32 05/08/24 23:32
Intake and Output
05/07/24 05/08/24 05/09/24
06:59 06:59 06:59
Intake Total 2019 2440 / 2440 1320 / 1320
Output Total 1185 / 1185 705 / 705 330 / 330
Balance 835 / 835 1735 / 1735 990 / 990
Intake:
Oral fluids 2019 1940 / 1940 1320 / 1320
IV fluids (Total) 500 / 500
Output:
Drain Output (Total) 90 / 90 55 / 55 80 / 80
Left Leg A 30 / 30 20 / 20 20 / 20
Left Upper Leg B 60 / 60 35 / 35 60 / 60
Urine, Jay 495 / 495 250 / 250
Urine, Voided 600 / 600 650 / 650
Other:
Number of approximated SMALL 2
amounts of urine
Number of approximated MODERATE 1 2
amounts of urine
Number of approximated LARGE 2
amounts of urine
How many times incontinent 1
SMALL amount urine
How many times incontinent 2
MODERATE amount urine
Lab Results
05/07/24 07:19
05/07/24 07:19
Calcium 9.6 mg/dl (8.4-10.2) 05/07/24 07:19
Phosphorus 3.0 mg/dl (2.5-4.5) 05/05/24 03:15
Magnesium 2.0 mg/dl (1.6-2.3) 05/06/24 06:12
Magnesium Cancelled 05/06/24 06:12
Physical Exam
-
NAD
L groin incision c/d/i
Minimal drain output
[2024-05-09 07:10] VITALS: BP 101/66
[2024-05-09 08:40] VITALS: BP 100/69; PULSE 88
[2024-05-09] MEDS: TYLENOL 650 MG PO ×2 (10:30→18:41)
[2024-05-09 15:15] VITALS: BP 102/65
[2024-05-09] MEDS: ASPIR LOW (ENTERIC COATED) 81 MG PO (18:24)
[2024-05-09] MEDS: LIPITOR 40 MG PO (18:24)
[2024-05-09] MEDS: PLAVIX 75 MG PO (18:24)
[2024-05-09] MEDS: VITAMIN D3 (cholecalciferol) 25 MCG PO (18:24)
[2024-05-09] MEDS: ZESTRIL 10 MG PO (18:38)
[2024-05-09] MEDS: VITAMIN B-12 1000 MCG PO (22:33)
[2024-05-09] MEDS: DELTASONE 5 MG PO (22:33)
[2024-05-09 23:06] VITALS: BP 105/69
[2024-05-10] MEDS: HEPARIN 5000 UNITS SC ×3 (00:18→17:23)
[2024-05-10 07:35] VITALS: BP 121/96
--- NOTE | 2024-05-10 07:37 | W.PN.VS ---
Addendum entered and electronically signed by Charles Caraballo MD 05/10/24 08:13:
Seen and examined with CARLOS Higuera. Agree with findings and plan as noted below. Likely discontinue OLAYINKA that is overlying the sartorius flap, likely continue the OLAYINKA that is in the prior (mobilized) sartorius bed.
Original Note:
Today's Communication / Plan
-
Seen and assessed with Dr. Caraballo
Assessment/Plan
-
POD 6
1.) Left common femoral artery aneurysm repair
2.) Prophylactic sartorius muscle flap coverage
Plan:
-Continue OLAYINKA drains for now. May DC drain later today
-Continue PT
-Working on SNF placement
Subjective Data
-
Date of Service: May 10, 2024
Patient seen at bedside this a.m. with Dr. Caraballo. Patient offers no complaints at this time. No events overnight.
Objective Data
-
Vital Signs
Temp Pulse Resp BP Pulse Ox
98.2 F 77 16 105/69 97
05/09/24 23:06 05/09/24 23:06 05/09/24 23:06 05/09/24 23:06 05/09/24 23:06
Intake and Output
05/09/24 05/10/24 05/11/24
06:59 06:59 06:59
Intake Total 1320 / 1320 660 / 660
Output Total 330 / 330
Balance 990 / 990 645 / 645
Intake:
Oral fluids 1320 / 1320 660 / 660
Output:
Drain Output (Total) 80 / 80
Left Leg A 20 / 20 5 / 5
Left Upper Leg B 60 / 60 10 / 10
Urine, Jay 250 / 250
Other:
Number of approximated MODERATE 4
amounts of urine
Number of approximated LARGE 2
amounts of urine
How many times incontinent 1
SMALL amount urine
How many times incontinent 2
MODERATE amount urine
Lab Results
05/07/24 07:19
05/07/24 07:19
Calcium 9.6 mg/dl (8.4-10.2) 05/07/24 07:19
Phosphorus 3.0 mg/dl (2.5-4.5) 05/05/24 03:15
Magnesium 2.0 mg/dl (1.6-2.3) 05/06/24 06:12
Magnesium Cancelled 05/06/24 06:12
Physical Exam
-
AAOx3
No tachypnea on room air
No tachycardia
Abdomen soft, nontender, nondistended
Surgical site clean dry and intact, soft, no drainage noted
Foot warm and pink
Palpable pulse
JPs with minimal output
--- NOTE | 2024-05-10 11:57 | W.PN.UPDATE ---
Update Note
Progress Note Update
Medial OLAYINKA drain removed at bedside. Patient tolerated well. Lateral drains stripped. Will order drain education. Okay for DC from vascular standpoint once placement is found
--- NOTE | 2024-05-10 12:35 | CM ---
CM following re: discharge planning.
Reviewed pt's chart, met with t and spoke to pt's granddaughter Lynda to update on discharge plan progress.
pt stated he is not in clear mind to discuss SNF preferences and he asked to coordinate it with his granddaughter Lynda.
CM spoke to pt's granddaughter Lynda and she is aware that [facility] offered a bed and granddaughter expressed her agreement.
D/C plan: [facility] when medically stable.
CM will follow to assist pt with discharge to [facility].
'
[2024-05-10 15:00] VITALS: BP 112/69
[2024-05-10] MEDS: TYLENOL 650 MG PO (15:33)
[2024-05-10 16:27] VITALS: BP 143/76; PULSE 84
[2024-05-10] MEDS: VITAMIN D3 (cholecalciferol) 25 MCG PO (17:23)
[2024-05-10] MEDS: ZESTRIL 10 MG PO (17:23)
[2024-05-10] MEDS: ASPIR LOW (ENTERIC COATED) 81 MG PO (17:23)
[2024-05-10] MEDS: PLAVIX 75 MG PO (17:23)
[2024-05-10] MEDS: LIPITOR 40 MG PO (17:23)
[2024-05-10] MEDS: VITAMIN B-12 1000 MCG PO (21:38)
[2024-05-10] MEDS: DELTASONE 5 MG PO (21:38)
[2024-05-10 23:25] VITALS: BP 101/54
[2024-05-11] MEDS: HEPARIN 5000 UNITS SC ×3 (00:30→17:30)
[2024-05-11 07:43] VITALS: BP 105/66
--- NOTE | 2024-05-11 07:48 | W.PN.VS ---
Addendum entered and electronically signed by Inder Jay III, MD 05/11/24 11:22:
This patient was seen and examined with RIGO Evans. I agree with the history and physical exam as well as the assessment and plan. I have the following additions:
Looks great overall
Incision clean and dry
Keep OLAYINKA drain
Follow-up in the office
Okay for discharge
Signed:
Inder Jay III, MD
[facility] Vascular Surgery
[phone] (dhuh)
Original Note:
Today's Communication / Plan
-
Seen and assessed with Dr. Jay
Assessment/Plan
-
POD 7
1.) Left common femoral artery aneurysm repair
2.) Prophylactic sartorius muscle flap coverage
Plan:
-Keep OLAYINKA drain
-Transfer to [facility]
-Follow up in chart
Subjective Data
-
Date of Service: May 11, 2024
Patient seen at bedside this a.m. with Dr. Jay. Patient reports no complaints. No events overnight
Objective Data
-
Vital Signs
Temp Pulse Resp BP Pulse Ox
98 F 67 18 105/66 97
05/11/24 07:43 05/11/24 07:43 05/11/24 07:43 05/11/24 07:43 05/11/24 07:43
Intake and Output
05/10/24 05/11/24 05/12/24
06:59 06:59 06:59
Intake Total 900 / 900 660 / 660
Output Total 5
Balance 870 / 870 655 / 655
Intake:
Oral fluids 900 / 900 660 / 660
Output:
Drain Output (Total) 5
Left Leg A
Left Upper Leg B
Other:
Number of approximated MODERATE 3 2
amounts of urine
Lab Results
05/07/24 07:19
05/07/24 07:19
Calcium 9.6 mg/dl (8.4-10.2) 05/07/24 07:19
Phosphorus 3.0 mg/dl (2.5-4.5) 05/05/24 03:15
Magnesium 2.0 mg/dl (1.6-2.3) 05/06/24 06:12
Magnesium Cancelled 05/06/24 06:12
Physical Exam
-
AAOx3
No tachypnea on room air
No tachycardia
Abdomen soft, nontender, nondistended
Surgical site clean dry and intact, soft, no drainage noted
Foot warm and pink
Palpable pulse
Lateral OLAYINKA with minimal output
--- NOTE | 2024-05-11 09:54 | CM ---
Addendum entered by Delisa Michel RN 05/11/24 16:21:
LUCRETIA spoke with Lisandra Enrollment Coordinator. Bed available tomorrow at [facility].
Auth started with Sue; Reference # [id number]; Clinicals faxed to: [phone]
Addendum entered by Delisa Michel RN 05/11/24 15:27:
Voice message left for admission at [facility] regarding bed availability and information needed for precert.
Addendum entered by Delisa Michel RN 05/11/24 14:45:
IMM signed and placed on chart.
Addendum entered by Delisa Michel RN 05/11/24 12:47:
LUCRETIA called Sailaja from [facility] again. Per Sailaja, she will evaluate in [facility] and let CM know if able to accept. Precert is required.
Original Note:
LUCRETIA left a voice message for [facility] Surgery Nurse ([phone]) to confirm bed availability and to request admitting doctor and NPI#. Information is needed for auth. OT evaluation pending for auth.
[2024-05-11 12:27] VITALS: BP 122/75; PULSE 104; O2SAT 94
[2024-05-11 15:06] VITALS: BP 106/65
--- NOTE | 2024-05-11 16:02 | W.DS.TRANS ---
DC Summary - Vice President Research
-
Discharge Instructions:
Discharge Diagnosis/Procedures Left common femoral artery aneurysm repair and
prophylactic sartorius muscle flap coverage
Diet As tolerated
Activity No strenuous activity
Driving Restrictions Not until seen by your Dr
Bathing Restrictions OK to Shower
Instructions:
Stand-Alone Forms: DC Instr - Vascular OR
Changes to Home Medications: Yes
Discharge Medications:
DC Medications w/original date entered in [place]
aspirin 81 mg tablet,delayed release 81 mg PO QPM Blood clot prevention/tx 11/14/21
atorvastatin 40 mg tablet 40 mg PO QPM High cholesterol 11/14/21
cholecalciferol (vitamin D3) 25 mcg (1,000 unit) tablet 1,000 units PO QPM Supplement 11/14/21
clopidogrel 75 mg tablet 75 mg PO QPM Blood clot prevention/tx 11/14/21
lisinopril 10 mg tablet 10 mg PO QPM Blood pressure 11/14/21
denosumab 60 mg/mL subcutaneous syringe (Prolia) 60 mg SC [id number] Osteoporosis 09/24/23
cyanocobalamin (vitamin B-12) 1,000 mcg tablet 1,000 mcg PO HS Supplement 04/26/24
prednisone 5 mg tablet 5 mg PO HS Anti-Inflammatory 04/26/24
oxycodone 5 mg tablet 5 mg PO [id number] PRN moderate pain #5 tabs 05/07/24
Home Medication Changes
Oxycodone added for pain management
Pending Results: No
[2024-05-11] MEDS: TYLENOL 650 MG PO (17:31)
[2024-05-11] MEDS: ASPIR LOW (ENTERIC COATED) 81 MG PO (17:33)
[2024-05-11] MEDS: ZESTRIL 10 MG PO (17:33)
[2024-05-11] MEDS: LIPITOR 40 MG PO (17:33)
[2024-05-11] MEDS: PLAVIX 75 MG PO (17:33)
[2024-05-11] MEDS: VITAMIN D3 (cholecalciferol) 25 MCG PO (17:33)
[2024-05-11] MEDS: VITAMIN B-12 1000 MCG PO (21:21)
[2024-05-11] MEDS: DELTASONE 5 MG PO (21:21)
[2024-05-11 23:29] VITALS: BP 98/74
[2024-05-12] MEDS: HEPARIN 5000 UNITS SC ×4 (00:01→23:03)
[2024-05-12 07:47] VITALS: BP 128/68
--- NOTE | 2024-05-12 08:57 | W.PN.VS ---
Today's Communication / Plan
-
See below.
Assessment/Plan
-
POD 8
1.) Left common femoral artery aneurysm repair
2.) Prophylactic sartorius muscle flap coverage
Plan:
-Discharge
Subjective Data
-
Date of Service: May 12, 2024
Patient offers no complaints, reports continued progress and eagerness for discharge to snf facility. Denies nausea, vomiting, fever, and chills.
Objective Data
-
Vital Signs
Temp Pulse Resp BP Pulse Ox
97.4 F 70 17 128/68 100
05/12/24 07:47 05/12/24 07:47 05/12/24 07:47 05/12/24 07:47 05/12/24 07:47
Intake and Output
05/11/24 05/12/24 05/13/24
06:59 06:59 06:59
Intake Total 660 / 660 560 / 560
Output Total 5 / 5 260 / 260
Balance 655 / 655 300 / 300
Intake:
Oral fluids 660 / 660 560 / 560
Output:
Drain Output (Total) 5 / 5 10 / 10
Left Leg A 5 / 5 10 / 10
Urine, Voided 250 / 250
Other:
Number of approximated MODERATE 2 2
amounts of urine
Lab Results
05/07/24 07:19
05/07/24 07:19
Calcium 9.6 mg/dl (8.4-10.2) 05/07/24 07:19
Phosphorus 3.0 mg/dl (2.5-4.5) 05/05/24 03:15
Magnesium 2.0 mg/dl (1.6-2.3) 05/06/24 06:12
Magnesium Cancelled 05/06/24 06:12
Physical Exam
-
AAOx3
Abdomen soft, nontender, nondistended
Surgical site clean dry and intact, soft, no drainage noted
Foot warm and pink
Palpable pulse
Lateral OLAYINKA with minimal output
[2024-05-12] MEDS: TYLENOL 650 MG PO (11:52)
--- NOTE | 2024-05-12 12:55 | CM ---
Received notification from patient's RN that patient's daughter does not feel comfortable transporting patient to [facility]. Met with patient and his daughter who was at bedside. She is agreeable to a w/c van and confirmed that she will pay
the cost. Update was provided that auth has not yet been received from [facility].
Plan: Case management will continue to follow and assist with discharge planning. [facility] as soon as auth is provided.
[2024-05-12 15:46] VITALS: BP 93/59
[2024-05-12] MEDS: VITAMIN D3 (cholecalciferol) 25 MCG PO (18:03)
[2024-05-12] MEDS: ASPIR LOW (ENTERIC COATED) 81 MG PO (18:03)
[2024-05-12] MEDS: PLAVIX 75 MG PO (18:03)
[2024-05-12] MEDS: LIPITOR 40 MG PO (18:05)
[2024-05-12] MEDS: ZESTRIL PO (18:27)
[2024-05-12] MEDS: DELTASONE 5 MG PO (22:20)
[2024-05-12] MEDS: VITAMIN B-12 1000 MCG PO (22:21)
[2024-05-12 23:00] VITALS: BP 115/73
[2024-05-13 07:20] VITALS: BP 115/50
[2024-05-13] MEDS: HEPARIN 5000 UNITS SC (09:54)
[2024-05-13 12:51] VITALS: PULSE 63; O2SAT 96
--- NOTE | 2024-05-13 13:58 | CM ---
Addendum entered by Gabby Trinidad 05/13/24 14:51:
met with patient and daughter at bedside.patient is being dc home.patient signed imm letter.daughter to transport home.
Original Note:
call from jean claude from home and [facility] care tranaition re pending insurance auth for snf loc.they are asking for a peer to peer.doctor needs date of ,hum[place] id before auth is given for snf.doctor to call [phone] option 5 .deadline for
call is 3:30 pm.i sent this info to dr fermin via TT.now they are thinking about pulling the drain and sending patient home.patient was seen by pt and ambulated 77 feet.will speak with patient and family.
--- NOTE | 2024-05-13 15:09 | W.PN.VS ---
Addendum entered and electronically signed by Charles Caraballo MD 05/13/24 15:27:
Seen and examined with CARLOS Quinones. Agree with findings and plan as noted below.
Original Note:
Today's Communication / Plan
-
Patient seen and examined at bedside with Dr. Charles Caraballo, below plan reviewed with attending.
Assessment/Plan
-
POD 9
1.) Left common femoral artery aneurysm repair
2.) Prophylactic sartorius muscle flap coverage
Plan:
-Previously cleared for discharge to [facility] facility but was challenging to place due to insurance authorization and bed availability. He is now stable for discharge to home.
-Patient will follow-up in office as scheduled
Subjective Data
-
Date of Service: May 13, 2024
Patient seen and examined at bedside, offers no complaints and reports eagerness for discharge to home. Denies nausea, vomiting, fever, and chills.
Objective Data
-
Vital Signs
Temp Pulse Resp BP Pulse Ox
98.3 F 62 18 115/50 96
05/13/24 07:20 05/13/24 07:20 05/13/24 07:20 05/13/24 07:20 05/13/24 07:20
Intake and Output
05/12/24 05/13/24 05/14/24
06:59 06:59 06:59
Intake Total 560 / 560 960 / 960 240 / 240
Output Total 260 / 260 5 / 5
Balance 300 / 300 960 / 960 235 / 235
Intake:
Oral fluids 560 / 560 960 / 960 240 / 240
Output:
Drain Output (Total) 10 / 10 5 / 5
Left Leg A 10 / 10 5 / 5
Urine, Voided 250 / 250
Other:
Number of approximated MODERATE 2 5 3
amounts of urine
Lab Results
05/07/24 07:19
05/07/24 07:19
Calcium 9.6 mg/dl (8.4-10.2) 05/07/24 07:19
Phosphorus 3.0 mg/dl (2.5-4.5) 05/05/24 03:15
Magnesium 2.0 mg/dl (1.6-2.3) 05/06/24 06:12
Magnesium Cancelled 05/06/24 06:12
Physical Exam
-
AAOx3
Abdomen soft, nontender, nondistended
Surgical site clean dry and intact, soft, no drainage noted
Foot warm and pink
Palpable pulse
Lateral OLAYINKA with minimal output and removed by this provider, following removal site CDI
--- NOTE | 2024-05-13 15:14 | W.DS.TRANS ---
DC Summary - Client Success Director
-
Discharge Instructions:
Discharge Diagnosis/Procedures Left common femoral artery aneurysm repair and
prophylactic sartorius muscle flap coverage
Diet As tolerated
Activity No strenuous activity
Driving Restrictions Not until seen by your Dr
Bathing Restrictions OK to Shower
Wound Care You may remove gauze pad that was placed over
removed drain dressing tomorrow, following
removal of gauze dressing you may leave open to
air
Instructions:
Stand-Alone Forms: DC Instr - Vascular OR
Changes to Home Medications: No
Discharge Medications:
DC Medications w/original date entered in [employer] [facility]
aspirin 81 mg tablet,delayed release 81 mg PO QPM Blood clot prevention/tx 11/14/21
atorvastatin 40 mg tablet 40 mg PO QPM High cholesterol 11/14/21
cholecalciferol (vitamin D3) 25 mcg (1,000 unit) tablet 1,000 units PO QPM Supplement 11/14/21
clopidogrel 75 mg tablet 75 mg PO QPM Blood clot prevention/tx 11/14/21
lisinopril 10 mg tablet 10 mg PO QPM Blood pressure 11/14/21
denosumab 60 mg/mL subcutaneous syringe (Prolia) 60 mg SC [id number] Osteoporosis 09/24/23
cyanocobalamin (vitamin B-12) 1,000 mcg tablet 1,000 mcg PO HS Supplement 04/26/24
prednisone 5 mg tablet 5 mg PO HS Anti-Inflammatory 04/26/24
Home Medication Changes
Pending Results: No
[2024-05-13 15:30] VITALS: BP 102/66
--- NOTE | 2024-05-13 15:48 | VNURNOTE ---
Received information from LUCRETIA Hightower that patient's drains have been removed and granddaughter now wants to take patient home. This author had called granddaughter Lynda a few days prior and explained [facility] services. Referral placed in [facility].
--- NOTE | 2024-05-13 17:01 | PTCARENOTE ---
surgery MD removed OLAYINKA drain- covered spot with gauze and tape. RN relayed to pt that he is to remove dressing tomorrow morning per instructions
--- NOTE | 2024-05-14 07:55 | CM ---
met with patient and daughter at bedside.patient has been denied snf by [employer] insurance.drains have been removed and patient is dc to home. i spoke with daughter about home care and she would like rn to see patient.however patient is refusing
vn.call to orestes hart with vn.[facility]patient signed imm letter.
== END 2024-05-13 16:47 | disposition home health service (06) | DRG 253 ==
LOC: 2 SOUTH 09:12
PROVIDERS: Nurse Practitioner; Nurse Practitioner Acute Care; Nurse Practitioner Primary Care; ADMITTING PHYSICIAN Surgery Vascular Surgery; CONSULT PHYSICIAN Internal Medicine Critical Care Medicine; FAMILY PHYSICIAN Family Medicine
PROC: 04UL0JZ Supplement Left Femoral Artery with Synthetic Substitute, Open Approach (ICD-10-PCS; 2024-05-04)
PROC: 0KXR0ZZ Transfer Left Upper Leg Muscle, Open Approach (ICD-10-PCS; 2024-05-04)
DX: I72.4 Aneurysm of artery of lower extremity (principal); D62 Acute posthemorrhagic anemia; I51.3 Intracardiac thrombosis, not elsewhere classified; E78.5 Hyperlipidemia, unspecified; I10 Essential (primary) hypertension; M25.552 Pain in left hip; I73.9 Peripheral vascular disease, unspecified; H91.91 Unspecified hearing loss, right ear; M06.9 Rheumatoid arthritis, unspecified; Z86.79 Personal history of other diseases of the circulatory system; Z88.0 Allergy status to penicillin; Z91.048 Other nonmedicinal substance allergy status; Z79.82 Long term (current) use of aspirin; Z79.02 Long term (current) use of antithrombotics/antiplatelets; Z87.891 Personal history of nicotine dependence
CPT/HCPCS: 88304; 15734; 35141; 36415; 71045; 71046; 80048; 83735; 84100; 84484; 85025; 85027; 85610; 85730; 86850; 86900; 86901; 87070; 93005; 97116; 97163; 97166; 97530

== ENCOUNTER 2024-06-08 15:54 | Inpatient (IN) | payer OTHER, SELFPAY ==
[2024-06-08 12:43] VITALS: BP 154/81
[2024-06-08 13:12] LABS: % Basophils 0.3 % (0-2); % Eosinophils 0.3 % (0-6); % Immature Granulocytes 1.5 % (0-0.5); % Lymphocytes 8.9 % (20.5-51.1); % Monocytes 4.1 % (1.7-9.3); % Neutrophils 84.9 % (42.2-75.2); Absolute Immature Granulocytes 0.2 10^3/uL (0-0.05); Absolute Monocytes 0.5 10^3/uL (0.1-0.6); Absolute Neutrophils 9.8 10^3/uL (1.4-6.5); Hematocrit 38.9 % (39.0-52.0); Hemoglobin 12.8 g/dL (13.0-18.0); Mean Corp Hgb Conc. 32.9 g/dL (33.0-37.0); Mean Corpuscular Hgb 32.1 pg (27.0-31.0); Mean Corpuscular Volume 97.5 fL (80.0-94.0); Nucleated Red Blood Cells % 0 % (-); Platelet Count 253 10^3/uL (130-400); Red Blood Cell Count 3.99 10^6/uL (4.70-6.10); Red Cell Dist. Width 14.6 % (11.5-14.5); White Blood Cell Count 11.6 10^3/uL (4.8-10.8)
[2024-06-08 13:25] LABS: Lactic Acid 2.2 mmol/L (0.7-2.0)
[2024-06-08 13:30] LABS: ALT (SGPT) 37 U/L (0-50); AST (SGOT) 28 U/L (17-59); Albumin 4.4 g/dl (3.5-5.0); Alkaline Phosphatase 101 U/L (38-126); Blood Urea Nitrogen 20 mg/dl (9-20); Calcium 9.7 mg/dl (8.4-10.2); Carbon Dioxide 23 mmol/L (22-30); Chloride 104 mmol/L (98-107); Glucose 121 mg/dl (70-99); Potassium 4.7 mmol/L (3.5-5.1); Sodium 140 mmol/L (135-145); Total Bilirubin 0.4 mg/dl (0.2-1.3); Total Protein 7.2 g/dl (6.3-8.2); eGFR > 60.00
--- NOTE | 2024-06-08 13:30 | ED.GENMED ---
History of Present Illness
<Margarita Ag PA-C - Last Filed: 06/08/24 16:41>
General
Chief Complaint: Skin Problem
Source: patient
Exam Limitations: none
Time Seen by Provider: 06/08/24 13:29
Nursing documentation reviewed up to this point in time: agreed with
History of Present Illness
History of Present Illness:
78-year-old male past medical history of peripheral arterial disease, peripheral vascular disease, abdominal aortic aneurysm, left femoral artery aneurysm presenting emergency department today with pain, erythema, and purulent drainage from his left
femoral postsurgical wound. Patient states a month ago, he had an aneurysm repaired in that area a month ago by Dr. Jay. Patient states that since then, he feels that the wound is opening up, has become painful, and has become red. in room
reports that the wound has been draining multiple days earlier this week. Patient denies any fevers or chills, any difficulty ambulating. Patient states that he feels when he sits in a chair, the wound opens further. Patient denies any nausea or
vomiting, any abdominal pain. Patient denies any chest pain or shortness of breath. Patient saw ED CASE MANAGER from vascular [facility] today who sent him to the emergency department for further eval and potential admission for debridement or wound VAC.
Past History
<Margarita Ag PA-C - Last Filed: 06/08/24 16:41>
Past History
ED Past Medical History: Hypercholesterolemia, Other (diverticulitis), Other (kidney stones, BPH) and Other (AAA)
ED Past Surgical History: Other (AAA repair 2019, kyphoplasty)
Social History
Tobacco: Former smoker
Alcohol: Occasional
Personal:
Living: with family
Family History
Family History: Other
Review of Systems
<Margarita Ag PA-C - Last Filed: 06/08/24 16:41>
Review of Systems
All Other Systems: ROS reviewed and negative except as documented in HPI and ROS
Phy Exam
<Margarita Ag PA-C - Last Filed: 06/08/24 16:41>
Physical Exam
Physical Exam:
General: Patient is well appearing and in no acute distress; non-toxic
Skin: Warm and dry, there is a linear surgical wound on the left groin extending into the left femoral area with surrounding erythema and purulence with subcutaneous tissue exposed
Head: Normocephalic, atraumatic
Eyes: Sclera non-icteric. EOMs intact.
Cardiac: Regular rate and rhythm, no murmurs
Peripheral Vascular: No lower extremity swelling or edema, 2+ dorsalis pedis pulses and posterior tibial pulses bilateral
Pulm: Normal respiratory effort, no wheezes, rales, rhonchi
Musculoskeletal: No bony tenderness palpation of left lower extremity, 5 out of 5 strength in bilateral lower extremity
Neuro: CN II-XII intact, no focal neurologic deficits.
Psychiatric: Appropriate mood and affect.
Course
<Margarita Ag PA-C - Last Filed: 06/08/24 16:41>
Orders/Labs/Results
Orders:
Orders
06/08/24 12:51
CBC/With Diff [Complete Blood Count/With Diff] Urgent
Comprehensive Metabolic Panel Urgent
Lactate Level [Lactic Acid] Urgent
06/08/24 13:59
0.9% Sodium Chloride 500 ml [Nss] 500 ml IV BOLUS
06/08/24 14:15
CT Abd/pelvis Angio W/wo Iv Urgent
Comment:
Reason For Exam: s/p L FEA with muscle flap now dehisced
06/08/24 14:24
Cefepime HCl [Maxipime] 2,000 mg IV NOW STA
06/08/24 15:24
Vancomycin [Vancocin] 1,500 mg 0.9% Sodium Chloride [Nss] 20 ml 0.9% Sodium Chloride 250 ml [Nss] 250 ml IV NOW
06/08/24 15:29
Admit/Transfer Patient As Directed
Co-Sign Provider:
Level of Care: Inpatient admission
Assign to:: Medical/Surgical
Physician / Group: Ed
Diagnosis: Left groin wound dehiscence
Reason for Hospitalization: IV abx, Vascular Consult
Expected length of stay greater than two midnights?: Yes
ELOS- Estimated Length of Stay in days: 3
I certify the patient meets the requirements for IP care: Yes
PRN Pain Medication Management As Directed
May give lesser potent ordered pain med per pt: Yes
preference::
Protocol:: Medication orders for pain may be administered in a
manner that supports deferring to patient preference
when the pt is:
- Requesting an ordered lesser potent pain medication.
Least to most potent pain medications are defined
as: acetaminophen < NSAID < tramadol < opioids
(morphine, oxycodone, hydromorphone).
- Requesting a lesser dose of the same medication IF
ORDERED.
- Requesting a less intrusive route of administration
if both routes are prescribed by the provider (PO <
IV).
06/08/24 15:31
Code Status As Directed
Resuscitation Status: Full Code
06/08/24 15:37
Wound Culture [Wound/Abscess/Other Culture] Urgent
MCKAYLA Source: Ulcer
Specimen Description:
Date Specimen was Collected: 06/08/24
Time Specimen was Collected: 14:20
Abnormal Lab Results
06/08/24
12:51
WBC 11.6 H 10^3/uL
(4.8-10.8)
RBC 3.99 L 10^6/uL
(4.70-6.10)
Hgb 12.8 L g/dL
(13.0-18.0)
Hct 38.9 L %
(39.0-52.0)
MCV 97.5 H fL
(80.0-94.0)
MCH 32.1 H pg
(27.0-31.0)
MCHC 32.9 L g/dL
(33.0-37.0)
RDW 14.6 H %
(11.5-14.5)
Abs Immat Gran (auto) 0.2 H 10^3/uL
(0-0.05)
Absolute Neuts (auto) 9.8 H 10^3/uL
(1.4-6.5)
Absolute Lymphs (auto) 1.0 L 10^3/uL
(1.2-3.4)
Immature Gran % 1.5 H %
(0-0.5)
Neutrophils % 84.9 H %
(42.2-75.2)
Lymphocytes % 8.9 L %
(20.5-51.1)
Glucose 121 H mg/dl
(70-99)
Lactic Acid 2.2 H mmol/L
(0.7-2.0)
06/08/24 12:51
06/08/24 12:51
Vital Signs
Initial and Last Documented VS:
Initial Vital Signs
Temp Pulse Resp BP Pulse Ox
98 F 65 16 154/81 98
06/08/24 12:43 06/08/24 12:43 06/08/24 12:43 06/08/24 12:43 06/08/24 12:43
Last Documented Vital Signs
Temp Pulse Resp BP Pulse Ox
98 F 65 16 154/81 98
06/08/24 12:43 06/08/24 12:43 06/08/24 12:43 06/08/24 12:43 06/08/24 12:43
<Shantelle Castro MD - Last Filed: 06/08/24 14:30>
Orders/Labs/Results
Orders:
Orders
06/08/24 12:51
CBC/With Diff [Complete Blood Count/With Diff] Urgent
Comprehensive Metabolic Panel Urgent
Lactate Level [Lactic Acid] Urgent
06/08/24 13:59
0.9% Sodium Chloride 500 ml [Nss] 500 ml IV BOLUS
06/08/24 14:15
CT Abd/pelvis Angio W/wo Iv Urgent
Comment:
Reason For Exam: s/p L FEA with muscle flap now dehisced
06/08/24 14:24
Cefepime HCl [Maxipime] 2,000 mg IV NOW STA
06/08/24 15:24
Vancomycin [Vancocin] 1,500 mg 0.9% Sodium Chloride [Nss] 20 ml 0.9% Sodium Chloride 250 ml [Nss] 250 ml IV NOW
06/08/24 15:29
Admit/Transfer Patient As Directed
Co-Sign Provider:
Level of Care: Inpatient admission
Assign to:: Medical/Surgical
Physician / Group: Ed
Diagnosis: Left groin wound dehiscence
Reason for Hospitalization: IV abx, Vascular Consult
Expected length of stay greater than two midnights?: Yes
ELOS- Estimated Length of Stay in days: 3
I certify the patient meets the requirements for IP care: Yes
PRN Pain Medication Management As Directed
May give lesser potent ordered pain med per pt: Yes
preference::
Protocol:: Medication orders for pain may be administered in a
manner that supports deferring to patient preference
when the pt is:
- Requesting an ordered lesser potent pain medication.
Least to most potent pain medications are defined
as: acetaminophen < NSAID < tramadol < opioids
(morphine, oxycodone, hydromorphone).
- Requesting a lesser dose of the same medication IF
ORDERED.
- Requesting a less intrusive route of administration
if both routes are prescribed by the provider (PO <
IV).
06/08/24 15:31
Code Status As Directed
Resuscitation Status: Full Code
06/08/24 15:37
Wound Culture [Wound/Abscess/Other Culture] Urgent
MCKAYLA Source: Ulcer
Specimen Description:
Date Specimen was Collected: 06/08/24
Time Specimen was Collected: 14:20
Abnormal Lab Results
06/08/24
12:51
WBC 11.6 H 10^3/uL
(4.8-10.8)
RBC 3.99 L 10^6/uL
(4.70-6.10)
Hgb 12.8 L g/dL
(13.0-18.0)
Hct 38.9 L %
(39.0-52.0)
MCV 97.5 H fL
(80.0-94.0)
MCH 32.1 H pg
(27.0-31.0)
MCHC 32.9 L g/dL
(33.0-37.0)
RDW 14.6 H %
(11.5-14.5)
Abs Immat Gran (auto) 0.2 H 10^3/uL
(0-0.05)
Absolute Neuts (auto) 9.8 H 10^3/uL
(1.4-6.5)
Absolute Lymphs (auto) 1.0 L 10^3/uL
(1.2-3.4)
Immature Gran % 1.5 H %
(0-0.5)
Neutrophils % 84.9 H %
(42.2-75.2)
Lymphocytes % 8.9 L %
(20.5-51.1)
Glucose 121 H mg/dl
(70-99)
Lactic Acid 2.2 H mmol/L
(0.7-2.0)
06/08/24 12:51
06/08/24 12:51
Vital Signs
Initial and Last Documented VS:
Initial Vital Signs
Temp Pulse Resp BP Pulse Ox
98 F 65 16 154/81 98
06/08/24 12:43 06/08/24 12:43 06/08/24 12:43 06/08/24 12:43 06/08/24 12:43
Last Documented Vital Signs
Temp Pulse Resp BP Pulse Ox
98 F 65 16 154/81 98
06/08/24 12:43 06/08/24 12:43 06/08/24 12:43 06/08/24 12:43 06/08/24 12:43
Romilt;Margarita Ag PA-C - Last Filed: 06/08/24 16:41>
MDM/Problems Addressed
Differential Diagnosis Includes:
ddx include infected postsurgical wound, diabetic ulcer, cellulitis, erysipelas, wound dehiscence
MDM/Problems Addressed:
Left groin/lower extremity wound:
78-year-old male past medical history of peripheral arterial disease, peripheral vascular disease, abdominal aortic aneurysm, left femoral artery aneurysm presenting emergency department today with pain, erythema, and purulent drainage from his left
femoral postsurgical wound. Patient states a month ago, he had an aneurysm repaired in that area a month ago by Dr. Jay. He follow-up in the office today with the nurse practitioner from Dr. Jay's office and advised to go to the emergency
department. Vascular team was made aware and plan to do potential debridement or wound VAC. Patient has no systemic signs or symptoms, no fevers or chills, no nausea or vomiting. On physical exam, he is a large postsurgical wound to the left
lower extremity with central opening and exposure to subcutaneous tissue with purulence. He states that this is painful. He has good distal pulses, he has a leukocytosis of 11,000 otherwise labs unremarkable. Vascular made aware who will come
down to the ER to evaluate patient and requested a CT aortic angio with runoff. Patient will be admitted with IV antibiotics. Will give vancomycin and cefepime consider vancomycin and Zosyn in light of patient's diabetes and history of penicillin
allergy. Patient referred for admission
Chronic conditions affecting care:
diabetes, peripheral vascular disease, COPD
Acute Exacerbation and/or Progression of Chronic Illness:
n/a
<Margarita Ag PA-C - Last Filed: 06/08/24 16:41>
*Pulse Oximetry
Patient hypoxic: no
*Critical Care Note
Total Time (30-74mins, 75-104mins- exclusive of procedures): Not Applicable
Data Reviewed
Review of Other/Old Records Reveals: Records (Reviewed operative report from 04/07/2024, reviewed discharge summary from 05/21/2024 or patient had aneurysm repair and he was then transferred to half-way) and Discharge Summary
Source: patient and records
Prescriptions/Medications Considered But Not Given:
n/a
Further Testing Considered But Not Given:
n/a
<Margarita Ag PA-C - Last Filed: 06/08/24 16:41>
Patient Management
Escalation/DeEscalation of care consider admission/obs:
Admit indicated
ED Attending Note
<Margarita Ag PA-C - Last Filed: 06/08/24 16:41>
-
Portions of this chart may have been created with voice recognition software.� Occasional wrong word or��sound alike� substitutions may have occurred due to the inherent limitations of voice recognition software.
<Shantelle Catsro MD - Last Filed: 06/08/24 14:30>
ED Attending Note
Patient seen and examined by attending physician: Yes
I performed the substantive portion of visit, reviewed & personally made and approve the management plan that is documented in note by myself or ANNIE.: Yes
ED Attending Note:
Patient is a 78-year-old man with history of common femoral artery aneurysm repair with prophylactic sartorius muscle coverage, May 04 presenting to the emergency department with concern for an infection. He went to his vascular surgeon today to
evaluate the wound who told him to come here for possible debridement and wound VAC placement. Patient denies any fevers or chills. He has been having numbness tingling from his hip to his knee though that has been chronic. No changes in color to
his leg. No weakness. No abdominal pain. He does state that the wound opened up and is draining.
Vitals were notable for being afebrile.
GENERAL: in no acute distress
HEENT: normocephalic, extraocular movements intact, moist oral mucosa
NECK: normal inspection
RESPIRATORY: no respiratory distress, clear to auscultation bilaterally
CARDIOVASCULAR: regular rate and rhythm
ABDOMEN/: soft, non-distended, non-tender to palpation, no rebound or guarding
EXTREMITIES: Left lower extremity: Open wound with some granulation tissue, surrounding erythema, some warmth
NEUROLOGIC: awake and alert, moves all extremities
SKIN: warm
Differential includes abscess versus cellulitis. Could be deeper into the muscle. Discussed with vascular surgery who recommended CT scan and admission. Will give antibiotics.
Discharge Plan
Departure
Patient Disposition: Admit
Date of Disposition: 06/08/24
Time of Disposition: 14:49
Admit to: Med/Surg
Presentation/result/management discussed w/ accepting MD/DO: Hospitalist
Patient with high blood pressure during this ER visit?: Yes
Condition: Fair
Discharge Problem:
Infected wound
Interventions
Interventions:
*Risk Screen - Suicide Last Done: 06/08/24 13:42
*General Assessment Last Done: 06/08/24 13:42
*Neglect/Abuse Screening Last Done: 06/08/24 13:42
ED- Fall Risk Assessment Last Done: 06/08/24 13:42
*ED COVID-19 Vaccine History Last Done: 06/08/24 13:42
ED-Skin Assessment Last Done: 06/08/24 13:42
[2024-06-08 13:48] VITALS: BMI 22.7
--- NOTE | 2024-06-08 15:21 | W.PN.UPDATE ---
Update Note
Progress Note Update
I saw and examined the patient.
The VAN DRIVER or PA's note was reviewed and I agree with the note.
Comment: 78-year-old male who was sent from the vascular surgery office for open left thigh wound with purulent discharge. He underwent left common femoral artery aneurysm repair and prophylactic sartorius muscle flap coverage by Dr. Inder Jay
III on 05/04/24. He reports having discharge from the wound as well as dehiscence of the surgical incision since that time.
154/81, 65, 16, 98.0 F, 98% RA,
Gen: NAD, Awake and alert, NCAT
Eyes: EOMI, PERRLA, no scleral icterus.
Neck: supple.
CV: RRR, +S1/S2, no m/r/g.
Resp: CTAB, no rales, wheezes, or rhonchi.
Abd: +BS, soft, NT, ND
Skin: Left anterior thigh with dehisced incision. There is no fluctuance or current purulent discharge but there is crusted old purulent discharge as well as firm tissue lateral to the dehiscence. Minimal surrounding erythema.
Vasc: RLE DP 2+
Neuro: CN 2-12 intact, non-focal.
Psych: Normal mood and affect.
Lab Results
06/08/24
12:51
WBC 11.6 H
RBC 3.99 L
Hgb 12.8 L
Hct 38.9 L
MCV 97.5 H
MCH 32.1 H
MCHC 32.9 L
RDW 14.6 H
Plt Count 253
MPV 9.0
Abs Immat Gran (auto) 0.2 H
Absolute Neuts (auto) 9.8 H
Absolute Lymphs (auto) 1.0 L
Absolute Monos (auto) 0.5
Absolute Eos (auto) 0.0
Absolute Basos (auto) 0.0
Immature Gran % 1.5 H
Neutrophils % 84.9 H
Lymphocytes % 8.9 L
Monocytes % 4.1
Eosinophils % 0.3
Basophils % 0.3
Nucleated RBC % 0
Sodium 140
Potassium 4.7
Chloride 104
Carbon Dioxide 23
BUN 20
Creatinine 0.9
eGFR > 60.00
Glucose 121 H
Lactic Acid 2.2 H
Calcium 9.7
Total Bilirubin 0.4
AST 28
ALT 37
Alkaline Phosphatase 101
Total Protein 7.2
Albumin 4.4
Postoperative left thigh wound dehiscence with purulent discharge:
-Consult vascular for further management. TigBetUknowect message sent to Dr. Jay to discuss whether patient will proceed right to the OR or whether imaging needs to be obtained first.
-Continue vancomycin and cefepime
-Consult infectious disease
-cont ASA/Plavix/statin for underlying PAD
-hold prednisone for now (for RA)
Essential HTN:
-cont Lisinopril
[2024-06-08] MEDS: MAXIPIME 2000 MG IV (15:31)
[2024-06-08] MEDS: NSS 500 IV (15:31)
--- NOTE | 2024-06-08 15:41 | HPS.HSE ---
Family Physician
-
Family Physician: Mehul Valentin
Chief Complaint
-
Post-op Wound
History of Present Illness
Patient is a 78 y/o male past medical history of hypertension, hyperlipidemia, and peripheral vascular disease who presents with a post-op wound. Patient underwent left common femoral artery aneurysm repair on May 04. He notes since the surgery
the wound has opened up. He was seen by vascular today who sent him to the emergency department for evaluation. He denies any purulent drainage from the site, fevers, sweats or chills.
Medical History
Past Medical History
Past Medical History: Reports Other
Additional Past Medical History:
Peripheral Vascular Disease
Essential Hypertension
Hyperlipidemia
Rheumatoid Arthritis
BPH
Osteoporosis
Past Surgical History: Reports Other
Additional Past Surgical History:
AAA Repair - 2018
Bilateral Groin Stents - 2020
Right Popliteal Artery Bypass - 2021
Left Common Femoral Artery Aneurysm Repair - 2023
Social History
Tobacco: Former Smoker
Alcohol: None
Drug: None
Personal:
Living: With Family
Family History
Family History: Not pertinent
Allergies / Home Medications
Allergies reflects when Allergies were last updated in [facility].
Home Medications with original date entered in [facility]
Allergy/Medication List:
Allergies
Allergy/AdvReac Type Severity Reaction Status Date / Time
adhesive Allergy Blistering/ Verified 06/08/24 12:43
welts
Penicillins Allergy 1951-childh Verified 06/08/24 12:43
ood
Home Medications
aspirin 81 mg tablet,delayed release 81 mg PO QPM Blood clot prevention/tx 11/14/21
atorvastatin 40 mg tablet 40 mg PO QPM High cholesterol 11/14/21
cholecalciferol (vitamin D3) 25 mcg (1,000 unit) tablet 1,000 units PO QPM Supplement 11/14/21
clopidogrel 75 mg tablet 75 mg PO QPM Blood clot prevention/tx 11/14/21
lisinopril 10 mg tablet 10 mg PO QPM Blood pressure 11/14/21
denosumab 60 mg/mL subcutaneous syringe (Prolia) 60 mg SC [id number] Osteoporosis 09/24/23
cyanocobalamin (vitamin B-12) 1,000 mcg tablet 1,000 mcg PO HS Supplement 04/26/24
prednisone 5 mg tablet 5 mg PO DAILY Anti-Inflammatory 04/26/24
Review of Systems
-
A 12 point ROS was completed and negative except as noted: Yes
Constitutional: Denies Fever or Chills
Respiratory: Denies Cough or Trouble Breathing
Cardiac: Denies Chest Pain or Palpitations
Physical Exam
Vital Signs
Vital Signs
Temp Pulse Resp BP Pulse Ox
98 F 65 16 154/81 98
06/08/24 12:43 06/08/24 12:43 06/08/24 12:43 06/08/24 12:43 06/08/24 12:43
Physical Exam
General: Comfortable and Conversant
HEENT: Anicteric and Moist mucous membranes
Respiratory: Clear and Non Labored Respirations
Cardiac: S1/S2 and Regular Rhythm
GI: Soft and Non Tender
Rectal: Deferred by Provider
Musculoskeletal: No Clubbing, No Cyanosis and No Edema
Skin: Warm, Dry and Other (Left groin wound with mild surrounding erythema, but no purulent drainage or flutuance notes)
Neuro: Awake, Alert and Oriented
Psych: Calm
Laboratory Results
-
06/08/24 12:51
06/08/24 12:51
Laboratory Results
Lactic Acid 2.2 mmol/L (0.7-2.0) H 06/08/24 12:51
Total Bilirubin 0.4 mg/dl (0.2-1.3) 06/08/24 12:51
AST 28 U/L (17-59) 06/08/24 12:51
ALT 37 U/L (0-50) 06/08/24 12:51
Alkaline Phosphatase 101 U/L (38-126) 06/08/24 12:51
Data Reviewed
-
Lab Data: Labs Reviewed by me
Old Records: Requested
Impression/Plan
-
Post-Op Left Groin Wound Dehiscence
-Consult Vascular Surgery
-Consult Infectious Disease
-Consult Wound Care
-Continue Cefepime/Vancomycin
Peripheral Vascular Disease
-Continue Aspirin and Plavix
Essential Hypertension
-Continue lisinopril
Hyperlipidemia
-Continue atorvastatin
Rheumatoid Arthritis
-Prednisone on hold
DVT proph: Lovenox
Code Status: Full Code
[2024-06-08] MEDS: VANCOCIN 300 MG IV (16:02)
[2024-06-08] MEDS: VANCOCIN 300 ML IV (16:02)
--- NOTE | 2024-06-08 16:04 | W.PN.UPDATE ---
Update Note
Progress Note Update
Vascular consult: Office note from today below
Plan:
-Admit to hospitalist
-IV antibiotics
-CT angio abd/pelvis
-Will d/w attending and patient after scan
--- NOTE | 2024-06-08 16:21 | CON.ID ---
Consultation
-
Date/Time Consultation Requested: 06/08/24 approx 15:00
Date/Time Consultation Performed: 06/08/24 16:23 chart reviewed; saw patient 06/09/24 11:36
Requesting Provider: Gianna de la paz
Performing Provider: dr hill
Reason for Consultation: wound dehiscence
Chief Complaint / Past History
Chief Complaint
wound dehiscence
History of Present Illness
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
office 05/18 at that time it was unclear if he was having fevers or chills, he was having scant serous drainage from the wound and was leaving it open to air. Providers reported surrounding erythema. He was prescribed bactrim 1 DS tab BID x 7 days
and asked to return in 1 week for wound check. 05/25 he was seen again in office and reported no fevers or chills, incisional erythema improved and drainage resolved. DP pulse easily palpable and foot warm and well perfused. He told to clean the
wound with soap and water and cover with abd pad daily or PRN for drainage. 05/31 he called the office reporting that his L groin incision opened. Denied fevers, chills, bleeding. VN was asked to see patient and reported that there was dehiscence
near top of incision, redness seen around incision was unchanged and some serosanguinous drainage. a photo was sent to the surgical team via tiger text per the chart but is not visible to me on review. He was instructed to make a followup visit in
one week. That follow up visit was today. He was seen in the vascular surgery office and wound is reported to be open with minimal depth, no odor, there is eschar at the inferior aspect of the wound. images were uploaded into the note but I
cannot retrieve them - I get an error message. He presents from home.
Since arrival here hes afebrile, bp stable, wbc 11.6, hgb 12.8, plt 253, L shift is noted, eos are present, cr 0.9, lactic acid 2.2 on arrival and 1.8 on repeat, t bili 0.4, ast 28, alt 37, alk phos 101, a wound culture has been sent, 04/29 MRSA
screen negative, currently on vanc and cefepime, ID is consulted for assistance with management.
Past History
Additional Past Medical History:
Peripheral Vascular Disease
Essential Hypertension
Hyperlipidemia
Rheumatoid Arthritis
BPH
Osteoporosis
Additional Past Surgical History:
AAA Repair - 2018
Bilateral Groin Stents - 2020
Right Popliteal Artery Bypass - 2021
Left Common Femoral Artery Aneurysm Repair - 2023
Allergy History:
adhesive Allergy (Verified 06/08/24 12:43)
Blistering/welts
Penicillins Allergy (Verified 06/08/24 12:43)
1951-childhood
Medications Reviewed: Yes
Social History
Tobacco: Former Smoker
Alcohol: None
Drug: None
Family History
Family History: Not Pertinent
Review of Systems
Review of Systems
General: Negative Fever or Chills
All systems: All other systems were reviewed and were negative
Vital Signs
Temp Pulse Resp BP Pulse Ox
98 F 65 16 154/81 98
06/08/24 12:43 06/08/24 12:43 06/08/24 12:43 06/08/24 12:43 06/08/24 12:43
Physical Exam
Physical Exam
Constitutional: No Acute Distress
Cardiovascular: Regular Rate and S1/S2; Negative Murmur or Rub
Pulmonary: Clear and Symmetric; Negative Wheezes, Rales or Rhonchi
Gastrointestinal: Soft, Non Tender, Non Distended and Normal Bowel Sounds
Skin: Warm and Dry; Negative Rash or Jaundice
Wound: Other (7 cm of dehiscence of L groin surgical site with granulation tissue in most of the base, some mild slough at the proximal edege, minimal serous drainage, few mm of surrounding erythema most prominent hear the nondehsiced portion, none
around the dehisced area, no visible graft, no deep probing)
Lab / Diagnostic Study Results
06/08/24 12:51
06/08/24 12:51
Abs Immat Gran (auto) 0.2 10^3/uL (0-0.05) H 06/08/24 12:51
Absolute Neuts (auto) 9.8 10^3/uL (1.4-6.5) H 06/08/24 12:51
Absolute Lymphs (auto) 1.0 10^3/uL (1.2-3.4) L 06/08/24 12:51
Absolute Monos (auto) 0.5 10^3/uL (0.1-0.6) 06/08/24 12:51
Absolute Basos (auto) 0.0 10^3/uL (0-0.2) 06/08/24 12:51
Immature Gran % 1.5 % (0-0.5) H 06/08/24 12:51
Neutrophils % 84.9 % (42.2-75.2) H 06/08/24 12:51
Lymphocytes % 8.9 % (20.5-51.1) L 06/08/24 12:51
Monocytes % 4.1 % (1.7-9.3) 06/08/24 12:51
Eosinophils % 0.3 % (0-6) 06/08/24 12:51
Basophils % 0.3 % (0-2) 06/08/24 12:51
Lactic Acid 2.2 mmol/L (0.7-2.0) H 06/08/24 12:51
Microbiology Results
Micro:
06/08/24 15:37 Wound Culture - Pending
Ulcer Gram Stain - Pending
Assessment / Plan
Possible Surgical Site Infection - L common femoral
- if patient develops shock then would send blood cultures x2, otherwise with a low yield and likely not needed
- repeat mrsa screen
- wound culture is in progress
- CT no collections there is some mild stranding in the area, physical exam with granulation tissue in the base
- qtc acceptable
- will follow up vascular notes
- agree with vancomycin and cefepime at this time; if discharge is planned tomorrow would switch to linezolid 600 mg PO BID (can use good rx coupon if not on his insurance formulary) and ciprofloxacin 500 mg PO BID both for 6 more days (7 day total
course)
- follow clinically
Patient not seen until 06/09; this note should be billed for 06/09
[2024-06-08 16:30] VITALS: BP 148/71
--- NOTE | 2024-06-08 17:15 | W.PN.UPDATE ---
Update Note
Progress Note Update
Chart reviewed
Checked ER room assignment, CT scan, waiting areas outside of CT scan and bed he was assigned on the floor.
Unable to physically locate patient.
Agree with current antibiotics - vanc/cefepime.
Repeat MRSA screen.
Will look for patient again in the AM.
[2024-06-08 17:53] VITALS: BP 130/68
[2024-06-08] MEDS: VITAMIN D3 (cholecalciferol) 25 MCG PO (18:02)
[2024-06-08] MEDS: ASPIR LOW (ENTERIC COATED) 81 MG PO (18:02)
[2024-06-08] MEDS: LIPITOR 40 MG PO (18:02)
[2024-06-08] MEDS: LOVENOX 40 MG SC (18:02)
[2024-06-08] MEDS: PLAVIX 75 MG PO (18:02)
[2024-06-08] MEDS: ZESTRIL 10 MG PO (18:03)
--- NOTE | 2024-06-08 19:08 | PTCARENOTE ---
pt arrived from ED at 17:50. pt ambulated from stretcher to bed with use of single point cane and standby assist. Pt assessed, AAOx3, wound cleaned with saline and covered with ABD pad. Pt VSS, call florentino and belongings within reach.
--- NOTE | 2024-06-08 20:08 | PHA.VAN.IN ---
Assessment
- Assessment
Renal Function: Appears similar to baseline (05/07/24 SCR = 0.8)
Concomitant Antimicrobials: CEFEPIME
- Previous Dosing Experience
Previous Regimen: 1GM IV PRE-OP
Date of Regimen: 05/04/24
Provided Trough of: UNKNOWN
Provided AUC of: UNKNOWN
Patient's SCR is: Similar to previous dosing experience
Patient's weight is: Similar to previous dosing experience
AUC Dosing Plan
- Dosing Variables
Dosing Weight (kg): 56.3
Dosing CrCl (ml/min): 53
Vd coefficient (L/kg): 0.7
- Empiric Dosing
Initial / Loading Dose: 1500MG
Maintenance Regimen: 1GM IV Q24H
Estimated AUC (mcg*h/mL): 537
Estimated Peak (mcg*h/mL): 36.9
Estimated Trough (mcg/ml): 12.1
Estimated Half Life (H): 14.3
Pharmacokinetics Vancomycin I
- -
Patient Age: 78
Patient Sex: Male
Vancomycin Day #: 1
Indication: Skin And Soft Tissue ([L] GROIN WOUND)
Requesting Provider: JANI
Pertinent Antimicrobial Allergies:
Allergies
Penicillins Allergy (Verified 06/08/24 12:43)
1951-childhood
Height / Weight:
Height 5 ft 2 in
Actual Weight 56.3 kg
Pertinent Past Medical History: FEMORAL ARTERY ANEURYSM REPAIR 05/04/24
- Vital Signs / Lab Results
Temp Pulse Resp BP Pulse Ox
97.9 F 65 16 130/68 100
06/08/24 17:53 06/08/24 18:03 06/08/24 17:53 06/08/24 18:03 06/08/24 17:53
Lab Results - Hematology
06/08/24
12:51
WBC 11.6 H
Lab Results - Chemistry
06/08/24
12:51
BUN 20
Creatinine 0.9
Albumin 4.4
06/08/24
12:51
Lactic Acid 2.2 H
[2024-06-08 23:35] VITALS: BP 123/61
[2024-06-09 01:57] LABS: Lactic Acid 1.8 mmol/L (0.7-2.0)
[2024-06-09] MEDS: MAXIPIME 2000 MG IV ×2 (04:39→17:13)
[2024-06-09] MEDS: STERILE WATER FOR INJECTION 10 ML IV ×2 (04:40→17:13)
[2024-06-09] MEDS: VANCOCIN 200 IV (05:32)
[2024-06-09 06:00] VITALS: BMI 22.8
[2024-06-09 07:19] VITALS: BP 137/83
--- NOTE | 2024-06-09 07:42 | W.PN.VS ---
Addendum entered and electronically signed by Charles Caraballo MD 06/09/24 07:56:
Seen and examined with [employer] PIPE SUPERVISOR. Agree with findings as noted below. Left groin with superficial dehiscence. There is granulation base. I do not note any deep probing. Eschar at the edge minimally laterally. No drainage that I can express. No
surrounding cellulitis or erythema. 2+ palpable femoral pulse. No large pulsatile mass. Left foot is warm with palpable DP and PT pulse. CT scan reviewed by me. There is some fluid likely postoperative likely deep to the sartorius bed, but no
overt signs of infection. No air. No rim-enhancing. No subcutaneous fluid collection.
Plan/ Superficial dehiscence left groin incision. I do not know that there is any overwhelming deep infection here. Would try conservative management for now. Localized wound care with wet-to-dry dressings. Continue antibiotics for now. Will
observe over the next 24 hours. If tomorrow look stable and no worsening, likely will plan discharge home with localized wound care.
Original Note:
Today's Communication / Plan
-
Patient seen and examined at bedside with Dr. Charles Caraballo, below plan reviewed with attending
Assessment/Plan
-
Assessment: 78 year old male underwent left common artery aneurysm repair with muscle flap on 05/04/24 who reported to ED for wound dehiscence.
Plan:
Continue antibiotics
Continue local wound care, currently wound is superficial and without evidence of infection will proceed with local wound care
Would recommend continued observation inpatient will reassess tomorrow AM if need for surgical wash out
Subjective Data
-
Date of Service: June 09, 2024
Patient seen and examined at bedside offers no complaints. Denies pain, fever, chills, drainage at surgical site, nausea, and vomiting.
Objective Data
-
Vital Signs
Temp Pulse Resp BP Pulse Ox
98.2 F 63 17 137/83 95
06/09/24 07:19 06/09/24 07:19 06/09/24 07:19 06/09/24 07:19 06/09/24 07:19
Intake and Output
06/08/24 06/09/24 06/10/24
06:59 06:59 06:59
Other:
Number of approximated MODERATE 3
amounts of urine
Lab Results
06/08/24 12:51
06/08/24 12:51
Calcium 9.7 mg/dl (8.4-10.2) 06/08/24 12:51
Total Bilirubin 0.4 mg/dl (0.2-1.3) 06/08/24 12:51
AST 28 U/L (17-59) 06/08/24 12:51
ALT 37 U/L (0-50) 06/08/24 12:51
Alkaline Phosphatase 101 U/L (38-126) 06/08/24 12:51
Total Protein 7.2 g/dl (6.3-8.2) 06/08/24 12:51
Albumin 4.4 g/dl (3.5-5.0) 06/08/24 12:51
Physical Exam
-
AAOx3
Abdomen soft, nontender, nondistended
Left groin surgical site with surface dehiscence, no drainage, no bleeding, are clean, no erythema
Foot warm and pink
Palpable pulse
--- NOTE | 2024-06-09 08:00 | WOUNDNOTE ---
WOC RN note: Confirmed with vascular PA Valentine Mari to cancel WOC RN consult. Vascular managing L groin incisional wound.
--- NOTE | 2024-06-09 08:00 | W.PN.HOSP.TC ---
Today's Communication/Plan
-
see bold
Assessment / Plan
Assessment / Plan
Gen: NAD, Awake and alert, NCAT
Eyes: EOMI, PERRLA, no scleral icterus.
Neck: supple.
CV: RRR, +S1/S2, no m/r/g.
Resp: CTAB, no rales, wheezes, or rhonchi.
Abd: +BS, soft, NT, ND
Skin: L thigh with C/D/I dressing
Vasc: RLE DP 2+
Neuro: CN 2-12 intact, non-focal.
Psych: Normal mood and affect.
CTA A/P: Post surgical changes in the left inguinal region, as described. Aneurysm sac has decreased slightly in size, 2.8 cm transverse (previously 3 cm transverse). The lumen demonstrates peripheral thrombus. Centrally, the vessel is patent, with
the lumen measuring approximate 1 cm. There is no extraluminal contrast extravasation. Unopacified of fluid attenuation extends inferiorly and medially. No associated significant defined wall or wall thickening. A few smaller low-attenuation
collections are also noted extending inferiorly. A linear soft tissue flap is noted anteriorly within the deep subcutaneous tissues, anterior to the region of the aneurysm. Presumably this corresponds to the reported muscle flap. Mild soft tissue
stranding is noted within the anterior subcutaneous fat, with a few small soft tissue nodules, possibly small lymph nodes. This is associated with a small shallow vertically oriented cutaneous defect, likely representing a surgical incision.
However, no focal soft tissue collection within the subcutaneous fat.
Postoperative left thigh wound dehiscence with purulent discharge:
-CTA A/P above, slightly decreased aneurysm sac size without contrast extravasation, unopacified fluid attenuation inferiorly and medially
-vascular surgery following. As per Dr. Caraballo, no evidence of infection. cont wound care.
-Continue vancomycin and cefepime as per ID
-cont ASA/Plavix/statin for underlying PAD
-holding home prednisone
Essential HTN:
-cont Lisinopril
Hyperlipidemia
-Continue atorvastatin
Rheumatoid Arthritis
-holding Prednisone
FULL/Lovenox
Anticipated Discharge: Within 24 hours
Subjective/Interval History
-
Date of Service: June 09, 2024
No new complaints.
Objective Data
-
Vital Signs:
Vital Signs
Temp Pulse Resp BP Pulse Ox
98.2 F 63 17 137/83 95
06/09/24 07:19 06/09/24 07:19 06/09/24 07:19 06/09/24 07:19 06/09/24 07:19
--- NOTE | 2024-06-09 08:17 | PHA.VAN.FU ---
Vancomycin Assessment / Plan
- Assessment
Renal Function: No New Labs Today
In the past 24 hrs, patient has been: Afebrile
Concomitant Antimicrobials: cefepime
- Dosing Plan
Continue: Vanc 1000mg Q24H
- Monitoring Plan
No level(s) ordered at this time: consider levels in next few days
- Follow Up
Pharmacy will continue to follow.
Vancomycin Follow UP
- -
Patient Age: 78
Patient Sex: Male
Vancomycin Day #: 2
Indication: Skin And Soft Tissue
Requesting Provider: Lyla Katz
Pertinent Antimicrobial Allergies:
Penicillins - unknown - 1950-childhood
Height / Weight:
Height 5 ft 2 in
Actual Weight 56.382 kg
Pertinent Past Medical History: PVD
- Vital Signs / Lab Results
Temp Pulse Resp BP Pulse Ox
98.2 F 63 17 137/83 95
06/09/24 07:19 06/09/24 07:19 06/09/24 07:19 06/09/24 07:19 06/09/24 07:19
Lab Results - Hematology
06/08/24
12:51
WBC 11.6 H
Lab Results - Chemistry
06/08/24
12:51
BUN 20
Creatinine 0.9
Albumin 4.4
06/08/24 06/08/24
12:51 23:52
Lactic Acid 2.2 H 1.8
--- NOTE | 2024-06-09 09:02 | VNURNOTE ---
Chart reviewed. Patient is current with [facility] nursing. Will continue to follow hospital course and DC plans.
[2024-06-09 12:15] LABS: Glycohemoglobin (HgbA1c) 5.4 % (4.0-5.6)
--- NOTE | 2024-06-09 13:25 | CM ---
Reviewed chart, placed a call to patient's granddaughter to obtain information for assessment, Lynda. She answered and stated that she could provide updated assessment information as patient was just here a few weeks ago. Patient lives with his
who has a TBI and his who has Alzheimers in a first floor condo with no steps. She reported that patient is independent with his bathing, dressing, all ADLs and uses a cane to assist with his ambulation. 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 Patient's is still able to assist with some of these things as well. Patient still drives and can get to his own appointments and does his own shopping.
Patient is current with VN. He would like for resumption.
He has never been to a SNF.
Patient has a prescription plan and uses [facility].
His PCP is Mehul Valentin.
Patient's daughter stated that patient will not be agreeable to a SNF but would like for resumption of care from [facility].
Will watch for any IV ABX needs.
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 Lynda stated that she is the
main caregiver for him.
Met with patient and bedside to discuss role of CM. Advised that his granddaughter was already called. He was appreciative.
Plan: Case management will continue to follow and assist with discharge planning. Home with VN, will watch for ABX needs.
[2024-06-09 15:23] VITALS: BP 107/61
[2024-06-09] MEDS: LIPITOR 40 MG PO (17:12)
[2024-06-09] MEDS: ZESTRIL 10 MG PO (17:12)
[2024-06-09] MEDS: PLAVIX 75 MG PO (17:12)
[2024-06-09] MEDS: ASPIR LOW (ENTERIC COATED) 81 MG PO (17:12)
[2024-06-09] MEDS: VITAMIN D3 (cholecalciferol) 25 MCG PO (17:12)
[2024-06-09] MEDS: LOVENOX 40 MG SC (17:13)
[2024-06-09 22:47] VITALS: BP 109/55
[2024-06-10] MEDS: STERILE WATER FOR INJECTION 10 ML IV (05:06)
[2024-06-10] MEDS: MAXIPIME 2000 MG IV (05:06)
[2024-06-10] MEDS: VANCOCIN 200 IV (05:06)
[2024-06-10 06:00] VITALS: BMI 22.1
[2024-06-10 07:19] VITALS: BP 98/61
--- NOTE | 2024-06-10 07:39 | W.PN.VS ---
Addendum entered and electronically signed by Charles Caraballo MD 06/10/24 07:46:
Seen and examined with CARLOS Mari. Agree with findings as noted below. Patient without any significant complaints. Left groin dressing removed. Incision site small superficial dehiscence stable. Excellent granulation base. Tissues are clean.
No depth. No drainage. Plan/ As discussed and noted below. Continue wet-to-dry dressings. Likely okay for discharge from vascular perspective with oral antibiotics.
Original Note:
Today's Communication / Plan
-
Seen and assessed with Dr. Caraballo
Assessment/Plan
-
Assessment: 78 year old male underwent left common artery aneurysm repair with muscle flap on 05/04/24 who reported to ED for wound dehiscence.
Plan:
Continue antibiotics per ID
Continue wet-to-dry dressings daily
May DC home today with p.o. antibiotics from vascular standpoint
Case management consult for home wound care
Subjective Data
-
Date of Service: June 10, 2024
Patient seen at bedside this a.mGeraldine Caraballo. Patient offers no complaints at this time. No events overnight. Dressing clean, dry, intact
Objective Data
-
Vital Signs
Temp Pulse Resp BP Pulse Ox
97.8 F 59 16 98/61 97
06/10/24 07:19 06/10/24 07:19 06/10/24 07:19 06/10/24 07:19 06/10/24 07:19
Intake and Output
06/09/24 06/10/24 06/11/24
06:59 06:59 06:59
Intake Total 890 / 890
Balance 890 / 890
Intake:
Oral fluids 690 / 690
IV piggybacks 200 / 200
Other:
Number of approximated MODERATE 3 5
amounts of urine
Lab Results
06/08/24 12:51
06/08/24 12:51
Calcium 9.7 mg/dl (8.4-10.2) 06/08/24 12:51
Total Bilirubin 0.4 mg/dl (0.2-1.3) 06/08/24 12:51
AST 28 U/L (17-59) 06/08/24 12:51
ALT 37 U/L (0-50) 06/08/24 12:51
Alkaline Phosphatase 101 U/L (38-126) 06/08/24 12:51
Total Protein 7.2 g/dl (6.3-8.2) 06/08/24 12:51
Albumin 4.4 g/dl (3.5-5.0) 06/08/24 12:51
Physical Exam
-
AAOx3
Abdomen soft, nontender, nondistended
Left groin surgical site with surface dehiscence, no drainage, no bleeding, clean, no erythema- wet-to-dry dressing reapplied
Foot warm and pink
Palpable pulse
--- NOTE | 2024-06-10 08:09 | PHA.VAN.FU ---
Vancomycin Assessment / Plan
- Assessment
Renal Function: No New Labs Today
In the past 24 hrs, patient has been: Afebrile
Concomitant Antimicrobials: cefepime
- Dosing Plan
Continue: Vanc 1000mg Q24H
- Monitoring Plan
No level(s) ordered at this time: consider levels in next few days
- Follow Up
Pharmacy will continue to follow.
Vancomycin Follow UP
- -
Patient Age: 78
Patient Sex: Male
Vancomycin Day #: 3
Indication: Skin And Soft Tissue
Requesting Provider: Lyla Katz
Pertinent Antimicrobial Allergies:
Penicillins - unknown - 1950-childhood
Height / Weight:
Height 5 ft 2 in
Actual Weight 54.658 kg
Pertinent Past Medical History: PVD
- Vital Signs / Lab Results
Temp Pulse Resp BP Pulse Ox
97.8 F 59 16 98/61 97
06/10/24 07:19 06/10/24 07:19 06/10/24 07:19 06/10/24 07:19 06/10/24 07:19
Lab Results - Hematology
06/08/24
12:51
WBC 11.6 H
Lab Results - Chemistry
06/08/24
12:51
BUN 20
Creatinine 0.9
Albumin 4.4
06/08/24 06/08/24
12:51 23:52
Lactic Acid 2.2 H 1.8
Microbiology Results
06/09/24 13:36 Nasal Screen MRSA (PCR) - Final
Nose MRSA not detected - performed by PCR methodology.
06/08/24 15:37 Wound Culture - Preliminary
Ulcer Gram Stain - Preliminary
--- NOTE | 2024-06-10 08:26 | W.PN.HOSP.TC ---
Addendum entered and electronically signed by Noah Ward MD 06/10/24 15:42:
Total time spent on d/c = 37 min. This included today's physical exam, progress note, review of laboratory and diagnostic data, preparation of discharge documents and prescriptions, and discussions about the pt's hospital course and discharge plan
with the patient and other medical office asst involved in the patient's care.
Addendum entered and electronically signed by Noah Ward MD 06/10/24 12:53:
Immunosuppressed
Original Note:
Today's Communication/Plan
-
Likely discharge later today on oral antibiotics
Assessment / Plan
Assessment / Plan
Gen: NAD, Awake and alert, NCAT
Eyes: EOMI, PERRLA, no scleral icterus.
Neck: supple.
CV: Remains RRR, +S1/S2, no m/r/g.
Resp: Remains CTAB, no rales, wheezes, or rhonchi.
Skin: Remains L thigh with C/D/I dressing
Vasc: RLE DP 2+
Neuro: CN 2-12 intact, non-focal.
Psych: Normal mood and affect.
CTA A/P: Post surgical changes in the left inguinal region, as described. Aneurysm sac has decreased slightly in size, 2.8 cm transverse (previously 3 cm transverse). The lumen demonstrates peripheral thrombus. Centrally, the vessel is patent, with
the lumen measuring approximate 1 cm. There is no extraluminal contrast extravasation. Unopacified of fluid attenuation extends inferiorly and medially. No associated significant defined wall or wall thickening. A few smaller low-attenuation
collections are also noted extending inferiorly. A linear soft tissue flap is noted anteriorly within the deep subcutaneous tissues, anterior to the region of the aneurysm. Presumably this corresponds to the reported muscle flap. Mild soft tissue
stranding is noted within the anterior subcutaneous fat, with a few small soft tissue nodules, possibly small lymph nodes. This is associated with a small shallow vertically oriented cutaneous defect, likely representing a surgical incision.
However, no focal soft tissue collection within the subcutaneous fat.
Postoperative left thigh wound dehiscence with purulent discharge:
-CTA A/P above, slightly decreased aneurysm sac size without contrast extravasation, unopacified fluid attenuation inferiorly and medially
-vascular surgery following. As per Dr. Caraballo, no evidence of infection. cont wound care.
-Continue vancomycin and cefepime as per ID
-cont ASA/Plavix/statin for underlying PAD
-holding home prednisone
Essential HTN:
-cont Lisinopril
Hyperlipidemia
-Continue atorvastatin
Rheumatoid Arthritis
-holding Prednisone
FULL/Lovenox
Anticipated Discharge: Within 24 hours
Subjective/Interval History
-
Date of Service: June 10, 2024
No new complaints.
Objective Data
-
Vital Signs:
Vital Signs
Temp Pulse Resp BP Pulse Ox
97.8 F 59 16 98/61 97
06/10/24 07:19 06/10/24 07:19 06/10/24 07:19 06/10/24 07:19 06/10/24 07:19
I&O
06/09/24 06/10/24 06/11/24
06:59 06:59 06:59
Intake Total 890 / 890
Balance 890 / 890
[2024-06-10 09:03] LABS: Hematocrit 36.9 % (39.0-52.0); Hemoglobin 12.3 g/dL (13.0-18.0); Mean Corp Hgb Conc. 33.3 g/dL (33.0-37.0); Mean Corpuscular Hgb 32.2 pg (27.0-31.0); Mean Corpuscular Volume 96.6 fL (80.0-94.0); Platelet Count 240 10^3/uL (130-400); Red Blood Cell Count 3.82 10^6/uL (4.70-6.10); Red Cell Dist. Width 14.6 % (11.5-14.5); White Blood Cell Count 6.1 10^3/uL (4.8-10.8)
[2024-06-10 09:19] LABS: Blood Urea Nitrogen 19 mg/dl (9-20); Calcium 9.5 mg/dl (8.4-10.2); Carbon Dioxide 24 mmol/L (22-30); Chloride 104 mmol/L (98-107); Estimated Creatinine Clearance 53 ml/min; Glucose 92 mg/dl (70-99); Potassium 4.3 mmol/L (3.5-5.1); Sodium 141 mmol/L (135-145); eGFR > 60.00
--- NOTE | 2024-06-10 09:57 | PN.CDI ---
CDI
- -
CDI:
Physician Documentation Request
Admit Date: 06/08/24 15:54
Dear Doctor Ed,
Clinical Indicators:
Patient s/p L common femoral artery aneurysm repair with prophylactic sartorius muscle flap coverage on 05/04/24.
PMH of Rheumatoid Arthritis; Home medications include: Prednisone 5 mg tablet 5 mg PO DAILY
06/10 PN, 'Postoperative left thigh wound dehiscence with purulent discharge...-holding home prednisone'
Based on the above, could you clarify in the progress notes, the appropriate diagnosis, if significant, that supports the
that supports the above abnormalities and additional evaluation, monitoring and/or treatment rendered:
Immunosuppressed
Other, please specify
Unable to determine
Use of terms such as suspected, likely, concern for, or probable (associated with a specific diagnosis that is being evaluated, monitored, or treated as if it exists) are acceptable and can be coded in the inpatient setting, when documented at the
time of discharge.
Thank you,
Nathaly Castro RN BSN
CDI Specialist
available via tiger text
Please use your independent medical judgment in providing your response.
--- NOTE | 2024-06-10 10:09 | CM ---
Addendum entered by RUTHIE Reardon 06/10/24 16:02:
Reviewed chart, met with patient to discuss discharge. He stated that his daughter, Asia, will come and pick him up. He signed IMM and its now on chart.
Patient will go home with wound care through [facility].
Original Note:
Received consult for VN wound care. Spoke with [facility] liasonMimi who confirmed that wound care is part of the services he will receive.
Plan: Case management will continue to follow and assist with discharge planning. Home when stable with VN.
--- NOTE | 2024-06-10 15:01 | W.PN.ID1 ---
Date of Service
Date of Service: June 10, 2024
Today's Communication
stable for dc with oral antibiotics
Assessment / Plan
Possible Surgical Site Infection - L common femoral
- wound culture: GNR and CONS
- qtc acceptable
- will follow up vascular notes
- switch to linezolid 600 mg PO BID (can use good rx coupon if not on his insurance formulary) and ciprofloxacin 500 mg PO BID both for 5 more days (7 day total course)
- follow clinically
Chief Complaint
-: Other (surgical site infection)
Subjective / Review of Systems
remains afebrile
no overnight events
Vital Signs / Physical Exam
Vital Signs
Vital Signs
Temp Pulse Resp BP Pulse Ox
97.8 F 59 16 98/61 97
06/10/24 07:19 06/10/24 07:19 06/10/24 07:19 06/10/24 07:19 06/10/24 07:19
Physical Exam
Constitutional: No Acute Distress
Cardiovascular: Regular Rate and S1/S2; Negative Murmur or Rub
Pulmonary: Clear and Symmetric; Negative Wheezes or Rales
Gastrointestinal: Soft, Non Tender, Non Distended and Normal Bowel Sounds
Skin: Warm and Dry; Negative Rash or Jaundice
Wound: Other (7 cm of dehiscence of L groin surgical site with granulation tissue in most of the base, some mild slough at the proximal edege, minimal serous drainage, few mm of surrounding erythema most prominent hear the nondehsiced portion, none
around the dehisced area, no visible graft, no deep probing)
Objective Data
Lab Data
Lab Results
06/10/24 08:36
06/10/24 08:36
Estimated Creat Clear 53 ml/min 06/10/24 08:36
Lactic Acid 1.8 mmol/L (0.7-2.0) 06/08/24 23:52
Total Bilirubin 0.4 mg/dl (0.2-1.3) 06/08/24 12:51
AST 28 U/L (17-59) 06/08/24 12:51
ALT 37 U/L (0-50) 06/08/24 12:51
Alkaline Phosphatase 101 U/L (38-126) 06/08/24 12:51
Most recent labs reviewed.
Micro Results:
06/08/24 15:37 Wound Culture - Preliminary
Ulcer Gram negative bacilli
Coagulase neg. staphylococcus
Additional testing on request
Gram Stain - Preliminary
06/09/24 13:36 Nasal Screen MRSA (PCR) - Final
Nose MRSA not detected - performed by PCR methodology.
Care Review
Plan reviewed with: Physician (dr juan small)
[2024-06-10 15:28] VITALS: BP 98/48
--- NOTE | 2024-06-10 15:42 | W.DCSUMMARY ---
Discharge Summary
Discharge Data
Date of Admission: 06/08/24
Date of Discharge: 06/10/24
-
Pending Results: No
Hospital Course
Primary diagnoses:
Postoperative left thigh wound dehiscence with purulent discharge
Secondary diagnoses:
Peripheral arterial disease with left common femoral artery aneurysm repair on05/04/24
Essential hypertension
Hyperlipidemia
Rheumatoid Arthritis (immunosuppressed)
Consultants:
Infectious disease
Vascular surgery
Imaging:
CTA A/P: Post surgical changes in the left inguinal region, as described. Aneurysm sac has decreased slightly in size, 2.8 cm transverse (previously 3 cm transverse). The lumen demonstrates peripheral thrombus. Centrally, the vessel is patent, with
the lumen measuring approximate 1 cm. There is no extraluminal contrast extravasation. Unopacified of fluid attenuation extends inferiorly and medially. No associated significant defined wall or wall thickening. A few smaller low-attenuation
collections are also noted extending inferiorly. A linear soft tissue flap is noted anteriorly within the deep subcutaneous tissues, anterior to the region of the aneurysm. Presumably this corresponds to the reported muscle flap. Mild soft tissue
stranding is noted within the anterior subcutaneous fat, with a few small soft tissue nodules, possibly small lymph nodes. This is associated with a small shallow vertically oriented cutaneous defect, likely representing a surgical incision.
However, no focal soft tissue collection within the subcutaneous fat.
Hospital course: 78-year-old male presented with purulent discharge and dehiscence of his left thigh wound after left common femoral artery aneurysm repair on05/04/24 as outlined in the H&P done on admission. CTA A/P above, slightly decreased
aneurysm sac size without contrast extravasation, unopacified fluid attenuation inferiorly and medially. Patient was started on vancomycin and cefepime. Vascular surgery saw in consultation. As per Dr. Caraballo, no evidence of infection. The patient's
aspirin, Plavix, and statin were continued for his underlying peripheral arterial disease. His home prednisone was held. On the day of discharge infectious disease recommended discharge on 5 further days of Zyvox and Cipro. The patient was
discharged in medically stable condition.
Discharge Plan
-
Patient Disposition: Home (Routine Discharge)
Discharge Diagnosis/Procedures: Postoperative left thigh wound dehiscence with purulent discharge
Condition: Good
Diet: Low Cholesterol and Low Sodium
Activity: As tolerated
Driving Restrictions: As prior to admission
Referrals:
Mehul Valentin, DO [Family Provider] - in less than 1 week
Prescriptions:
New
ciprofloxacin HCl 500 mg Tablet
500 mg PO BID Qty: 10 0RF
linezolid 600 mg Tablet
600 mg PO BID Qty: 10 0RF
Continued
atorvastatin 40 MG tablet
40 mg PO QPM
clopidogrel 75 MG tablet
75 mg PO QPM
aspirin 81 MG tablet,delayed release (DR/EC)
81 mg PO QPM
lisinopril 10 MG tablet
10 mg PO QPM
cholecalciferol (vitamin D3) 1,000 UNITS tablet
1,000 units PO QPM
Prolia 60 mg/mL Syringe
60 mg SC [id number]
prednisone 5 mg Tablet
5 mg PO DAILY
cyanocobalamin (vitamin B-12) 1,000 MCG tablet
1,000 mcg PO HS
Discharge Orders:
Discharge Patient (As Directed); Ordered 06/10/24
Ordered By: Noah Ward
Discharge Date and Time
Print Language: GUYANESE
== END 2024-06-10 16:50 | disposition home health service (06) | DRG 920 ==
LOC: 3 WEST ACU 15:54
PROVIDERS: Emergency Medicine; Physician Assistant Medical; ADMITTING PHYSICIAN Internal Medicine; EMERGENCY PHYSICIAN Student in an Organized Health Care Education/Training Program; FAMILY PHYSICIAN Family Medicine; OTHER PHYSICIAN Student in an Organized Health Care Education/Training Program
DX: T81.31XA Disruption of external operation (surgical) wound, not elsewhere classified, initial encounter (principal); D84.9 Immunodeficiency, unspecified; I73.9 Peripheral vascular disease, unspecified; E78.00 Pure hypercholesterolemia, unspecified; N40.0 Benign prostatic hyperplasia without lower urinary tract symptoms; J44.9 Chronic obstructive pulmonary disease, unspecified; E11.9 Type 2 diabetes mellitus without complications; I72.4 Aneurysm of artery of lower extremity; I10 Essential (primary) hypertension; M06.9 Rheumatoid arthritis, unspecified; M81.0 Age-related osteoporosis without current pathological fracture; Y83.8 Other surgical procedures as the cause of abnormal reaction of the patient, or of later complication, without mention of misadventure at the time of the procedure; Y92.9 Unspecified place or not applicable; Z87.19 Personal history of other diseases of the digestive system; Z87.442 Personal history of urinary calculi; Z87.891 Personal history of nicotine dependence; Z86.79 Personal history of other diseases of the circulatory system; Z88.0 Allergy status to penicillin; Z91.048 Other nonmedicinal substance allergy status
CPT/HCPCS: 74174; 80048; 80053; 83036; 83605; 85025; 85027; 87070; 87147; 87205; 87641; 96361; 96374; 96375; 99284; Q9967

== ENCOUNTER → 2024-06-23 12:51 | Outpatient (REF) | payer OTHER, SELFPAY | LOC: RAD 12:51 | PROVIDERS: ATTENDING PHYSICIAN Registered Nurse; FAMILY PHYSICIAN Family Medicine | DX: I72.4 Aneurysm of artery of lower extremity (principal) | CPT/HCPCS: 93922; 93925 ==

== ENCOUNTER → 2024-07-30 09:50 | Outpatient (REF) | payer OTHER, SELFPAY ==
[2024-07-30 11:57] LABS: ALT (SGPT) 13 U/L (0-50); AST (SGOT) 22 U/L (17-59); Albumin 4.4 g/dl (3.5-5.0); Alkaline Phosphatase 118 U/L (38-126); Blood Urea Nitrogen 19 mg/dl (9-20); Calcium 9.6 mg/dl (8.4-10.2); Carbon Dioxide 26 mmol/L (22-30); Chloride 103 mmol/L (98-107); Glucose 94 mg/dl (70-99); HDL Cholesterol 41 mg/dl; LDL Cholesterol, Calculated 68 mg/dl; Potassium 4.4 mmol/L (3.5-5.1); Sodium 141 mmol/L (135-145); Total Bilirubin 0.5 mg/dl (0.2-1.3); Total Cholesterol 130 mg/dl (50-199); Total Protein 7.5 g/dl (6.3-8.2); Triglyceride 105 mg/dl (10-149); Very Low Density Lipoprotein 21 mg/dl (0-30); eGFR > 60.00
== END ==
LOC: REG 09:50
PROVIDERS: ATTENDING PHYSICIAN Internal Medicine Cardiovascular Disease
DX: E78.2 Mixed hyperlipidemia (principal)
CPT/HCPCS: 36415; 80053; 80061

== ENCOUNTER → 2024-12-28 10:18 | Outpatient (REF) | payer OTHER, SELFPAY ==
[2024-12-28 10:53] LABS: % Eosinophils 7.8 % (0-6); % Immature Granulocytes 0.5 % (0-0.5); % Lymphocytes 19.4 % (20.5-51.1); % Monocytes 9.7 % (1.7-9.3); % Neutrophils 61.6 % (42.2-75.2); Absolute Basophils 0.1 10^3/uL (0-0.2); Absolute Eosinophils 0.5 10^3/uL (0-0.7); Absolute Lymphocytes 1.2 10^3/uL (1.2-3.4); Absolute Monocytes 0.6 10^3/uL (0.1-0.6); Absolute Neutrophils 3.8 10^3/uL (1.4-6.5); Hematocrit 43.1 % (39.0-52.0); Hemoglobin 14.1 g/dL (13.0-18.0); Mean Corp Hgb Conc. 32.7 g/dL (33.0-37.0); Mean Platelet Volume 9.3 fL (7.4-10.4); Nucleated Red Blood Cells % 0 % (-); Platelet Count 180 10^3/uL (130-400); Red Cell Dist. Width 13.9 % (11.5-14.5); White Blood Cell Count 6.2 10^3/uL (4.8-10.8)
[2024-12-28 11:45] LABS: ALT (SGPT) 21 U/L (0-50); AST (SGOT) 23 U/L (17-59); Albumin 4.8 g/dl (3.5-5.0); Alkaline Phosphatase 104 U/L (38-126); Blood Urea Nitrogen 22 mg/dl (9-20); Calcium 10.3 mg/dl (8.4-10.2); Carbon Dioxide 28 mmol/L (22-30); Chloride 106 mmol/L (98-107); Glucose 102 mg/dl (70-99); HDL Cholesterol 54 mg/dl; LDL Cholesterol, Calculated 81 mg/dl; Potassium 4.9 mmol/L (3.5-5.1); Sodium 145 mmol/L (135-145); Total Bilirubin 0.9 mg/dl (0.2-1.3); Total Cholesterol 173 mg/dl (50-199); Triglyceride 190 mg/dl (10-149); Very Low Density Lipoprotein 38 mg/dl (0-30); eGFR > 60.00
[2024-12-28 11:48] LABS: Vitamin D, 25-OH*** 41.3 ng/mL (30-80)
[2024-12-28 12:01] LABS: PSA, Total - Screen 5.52 ng/ml (0.0-4.0); TSH Reflex To Free T4 2.08 uIU/ml (0.47-4.68)
[2024-12-28 13:22] LABS: Glycohemoglobin (HgbA1c) 5.5 % (4.0-5.6)
== END ==
LOC: REG 10:18
PROVIDERS: ATTENDING PHYSICIAN Physician Assistant Medical
DX: Z51.81 Encounter for therapeutic drug level monitoring (principal); M06.9 Rheumatoid arthritis, unspecified; I72.4 Aneurysm of artery of lower extremity; I10 Essential (primary) hypertension; E78.2 Mixed hyperlipidemia; M81.0 Age-related osteoporosis without current pathological fracture
CPT/HCPCS: 36415; 80053; 80061; 82306; 83036; 84443; 85025; G0103

== ENCOUNTER → 2025-01-10 08:16 | Outpatient (REF) | payer OTHER, SELFPAY | LOC: RAD 08:16 | PROVIDERS: ATTENDING PHYSICIAN Surgery Vascular Surgery | DX: I72.4 Aneurysm of artery of lower extremity (principal) | CPT/HCPCS: 76770; 93922; 93925 ==

== ENCOUNTER → 2025-01-21 13:06 | Outpatient (REF) | payer OTHER, SELFPAY | LOC: RAD 13:06 | PROVIDERS: ATTENDING PHYSICIAN Physician Assistant; FAMILY PHYSICIAN Family Medicine | DX: I72.4 Aneurysm of artery of lower extremity (principal) | CPT/HCPCS: 75635; Q9967 ==

== ENCOUNTER → 2025-02-24 11:12 | Outpatient (REF) | payer OTHER, SELFPAY ==
[2025-02-24 11:44] LABS: % Basophils 0.7 % (0-2); % Eosinophils 7.2 % (0-6); % Immature Granulocytes 0.3 % (0-0.5); % Lymphocytes 19.9 % (20.5-51.1); % Monocytes 8.4 % (1.7-9.3); % Neutrophils 63.5 % (42.2-75.2); Absolute Eosinophils 0.4 10^3/uL (0-0.7); Absolute Lymphocytes 1.1 10^3/uL (1.2-3.4); Absolute Monocytes 0.5 10^3/uL (0.1-0.6); Absolute Neutrophils 3.6 10^3/uL (1.4-6.5); Hematocrit 44.1 % (39.0-52.0); Hemoglobin 14.8 g/dL (13.0-18.0); Mean Corp Hgb Conc. 33.6 g/dL (33.0-37.0); Mean Corpuscular Volume 98.2 fL (80.0-94.0); Mean Platelet Volume 9.8 fL (7.4-10.4); Nucleated Red Blood Cells % 0 % (-); Platelet Count 178 10^3/uL (130-400); Red Blood Cell Count 4.49 10^6/uL (4.70-6.10); White Blood Cell Count 5.7 10^3/uL (4.8-10.8)
[2025-02-24 12:02] LABS: ALT (SGPT) 20 U/L (0-50); AST (SGOT) 24 U/L (17-59); Albumin 4.8 g/dl (3.5-5.0); Alkaline Phosphatase 89 U/L (38-126); Blood Urea Nitrogen 21 mg/dl (9-20); Carbon Dioxide 26 mmol/L (22-30); Chloride 108 mmol/L (98-107); Glucose 103 mg/dl (70-99); HDL Cholesterol 47 mg/dl; LDL Cholesterol, Calculated 56 mg/dl; Potassium 4.4 mmol/L (3.5-5.1); Sodium 143 mmol/L (135-145); Total Bilirubin 1.1 mg/dl (0.2-1.3); Total Cholesterol 128 mg/dl (50-199); Triglyceride 126 mg/dl (10-149); Very Low Density Lipoprotein 25 mg/dl (0-30); eGFR > 60.00
[2025-02-24 12:30] LABS: PSA, Total - Screen 6.36 ng/ml (0.0-4.0)
== END ==
LOC: REG 11:12
PROVIDERS: ATTENDING PHYSICIAN Physician Assistant Medical; PRIMARYCARE PHYSICIAN Family Medicine
DX: Z00.00 Encounter for general adult medical examination without abnormal findings (principal); R79.89 Other specified abnormal findings of blood chemistry; E78.2 Mixed hyperlipidemia; R97.20 Elevated prostate specific antigen [PSA]
CPT/HCPCS: 36415; 80053; 80061; 85025; G0103

== ENCOUNTER → 2025-04-14 15:25 | Outpatient (REF) | payer OTHER, SELFPAY ==
[2025-04-14 16:41] LABS: Hematocrit 45.2 % (39.0-52.0); Hemoglobin 14.4 g/dL (13.0-18.0); Mean Corp Hgb Conc. 31.9 g/dL (33.0-37.0); Mean Corpuscular Volume 100.4 fL (80.0-94.0); Nucleated Red Blood Cells % 0 % (-); Platelet Count 165 10^3/uL (130-400); Red Cell Dist. Width 13.2 % (11.5-14.5)
[2025-04-14 17:58] LABS: Folate 7.1 ng/ml (2.76-20); Vitamin B12 > 1000 pg/ml (239-931)
== END ==
LOC: CLAB 15:25
PROVIDERS: ATTENDING PHYSICIAN Physician Assistant Medical
DX: R79.89 Other specified abnormal findings of blood chemistry (principal)
CPT/HCPCS: 36415; 82607; 82746; 85025

== ENCOUNTER 2025-05-31 06:23 | Day surgery (SDC) | payer OTHER, SELFPAY | END 2025-05-31 16:48 | disposition home or self-care (01) | LOC: GI 06:23 | PROVIDERS: ATTENDING PHYSICIAN Internal Medicine Gastroenterology | DX: Z12.11 Encounter for screening for malignant neoplasm of colon (principal); K57.30 Diverticulosis of large intestine without perforation or abscess without bleeding; K63.5 Polyp of colon; D12.3 Benign neoplasm of transverse colon; Z86.0100 Personal history of colon polyps, unspecified | CPT/HCPCS: 45385; 45380; 88305 ==

== ENCOUNTER → 2025-06-02 10:44 | Outpatient (REF) | payer OTHER, SELFPAY | LOC: MRI 3T 10:44 | PROVIDERS: ATTENDING PHYSICIAN Surgery; FAMILY PHYSICIAN Family Medicine | DX: R97.20 Elevated prostate specific antigen [PSA] (principal) | CPT/HCPCS: 72197; A9575 ==

== ENCOUNTER 2025-07-11 06:37 | Day surgery (SDC) | payer OTHER, SELFPAY ==
[2025-07-11] VITALS (7 sets, daily range): BP systolic 109–142; BP diastolic 59–85; BMI 21.7
[2025-07-11] MEDS: NORMOSOL-R/PLASMALYTE-A 1000 IV (12:40)
== END 2025-07-11 15:45 | disposition home or self-care (01) ==
LOC: SDS 06:37
PROVIDERS: ATTENDING PHYSICIAN Surgery
DX: C61 Malignant neoplasm of prostate (principal); R97.20 Elevated prostate specific antigen [PSA]; R55 Syncope and collapse
CPT/HCPCS: 55700; 76998; 88305; 88344

== ENCOUNTER → 2025-08-10 09:50 | Outpatient (REF) | payer OTHER, SELFPAY | LOC: RAD 09:50 | PROVIDERS: ATTENDING PHYSICIAN Surgery Vascular Surgery; FAMILY PHYSICIAN Family Medicine | DX: I72.4 Aneurysm of artery of lower extremity (principal) | CPT/HCPCS: 93922; 93925 ==

== ENCOUNTER → 2025-08-15 11:51 | Outpatient (REF) | payer OTHER, SELFPAY ==
[2025-08-15 14:02] LABS: PSA, Total - Diagnostic 5.37 ng/ml (0.0-4.0)
== END ==
LOC: REG 11:51
PROVIDERS: ATTENDING PHYSICIAN Radiology Radiation Oncology
DX: C61 Malignant neoplasm of prostate (principal)
CPT/HCPCS: 36415; 84153